=== PATIENT | male | born 2000 | race Caucasian/White ===

== ENCOUNTER 2018-11-09 11:48 | Inpatient (IN) ==
[2018-11-09 12:46] LABS: Appearance Urine Clear (Clear); Bilirubin Urine Negative (Negative); Color Urine Yellow; Glucose Urine UA Negative (Negative); Ketones Urine Negative (Negative); Leukocyte Esterase Urine Negative (Negative); Nitrite Urine Negative (Negative); Protein Urine Negative (Negative); Specific Gravity Urine 1.024 (1.000-1.030); Urobilinogen Urine Negative (Negative)
[2018-11-09 12:47] LABS: Basophils # (auto) 0.03 K/uL (0-0.2); Basophils % (auto) 0.3 %; Eosinophils # (auto) 0.07 K/uL (0-0.5); Eosinophils % (auto) 0.7 %; Hematocrit (blood only) 50.2 % (42-52); Hemoglobin 17.9 g/dL (14.0-18.0); Immature Granulocytes # (auto) 0.01 K/uL (0.00-0.02); Immature Granulocytes % (auto) 0.1 %; Lymphocytes # (auto) 2.79 K/uL (1.2-3.4); Lymphocytes % (auto) 28.4 %; Mean Corpuscular Hgb Conc 35.7 g/dL (32-36); Mean Corpuscular Volume 83.7 fL (80-100); Mean Platelet Volume 9.8 fL (7.4-10.4); Monocytes % (auto) 7.1 %; Neutrophils # (auto) 6.24 K/uL (1.4-6.5); Neutrophils % (auto) 63.4 %; Platelet Count 224 K/uL (130-400); RDW Coefficient of Variation 12.7 % (11.5-14.5); White Blood Count 9.84 K/uL (4.8-10.8)
[2018-11-09 13:06] LABS: Albumin Level 4.5 gm/dl (3.4-5.0); BUN Creatinine Ratio 13.5 (10-20); Calcium 9.6 mg/dl (8.5-10.1); Creatinine Clr Calc Pharmacy 191.5 ml/min; Est GFR (Non-African American) 128.6; Potassium 4.1 mmol/L (3.5-5.1)
[2018-11-09 13:08] LABS: Amphetamines+Metham, Urine Neg (Neg); Barbiturates, Urine Neg (Neg); Benzodiazepine, Urine Neg (Neg); Cocaine, Urine Neg (Neg); MDMA (Ecstacy), Urine Neg (Neg); Methadone, Urine Neg (Neg); Opiate, Urine Neg (Neg); Phencyclidine, Urine Neg (Neg)
[2018-11-09 13:12] LABS: Acetaminophen < 2 ug/ml (10-30); Salicylate < 1.7 mg/dl (2.8-20)
[2018-11-09 13:16] LABS: Albumin Globulin Ratio 1.1 (0.9-2); Bilirubin,Total 0.7 mg/dl (0.2-1); Globulin 4.1 gm/dl (2.5-4.0); Total Protein 8.6 gm/dl (6.4-8.2)
--- NOTE | 2018-11-09 14:16 | Emergency Department Note ---
Entered by Yaz Malloy acting as a scribe for History of Present Illness General Chief complaint: Mental Health Evaluation Stated complaint: KEEPS SAYING HE WANTS TO KILL HIMSELF Time Seen by Provider: 11/09/18 12:28 Source: patient and other (psych caseworker intake) History of Present Illness Onset (ago): month(s) 6 Location: head Pain Consistency: + other (worsening) Quality: + other (mental health evaluation) Associated symptoms: + other (loss of pleasure in activities, decrease in energy , difficulty sleeping, difficulty concentrating, suicidal ideations); no loss of appetite The patient is a 18 year old male who presents to the Emergency Room for a mental health evaluation. The patient states that he has a history of depression starting 6 months ago. He states that recently it has gotten worse. He reports that he wants to hurt himself, but has no plan. He states that he is just upset about life. He reports that he has a decrease in pleasure in activities that used to enjoy and a decrease in his energy. He reports that he has also had difficulty sleeping and concentrating. The patient denies access to weapons, taking any pills, and loss of appetite. The psych caseworker intake notes that the patient was making comments about how he wants to just go home and . She states that he also was saying to his mother Why are you stopping me? Youll be fine with 2 kids. She notes that he was bought in by his mother because he was sending texts to her this morning about wanting to . She notes that his girlfriend broke up with him on New as well. Home Medications Home Medications Medication Instructions Recorded Confirmed Type lorazepam [Ativan] 1 mg PO Q8 PRN 11/09/18 11/09/18 History venlafaxine [Effexor XR] 75 mg PO DAILY 11/09/18 11/09/18 History Allergies Allergy/AdvReac Type Severity Reaction Status Date / Time No Known Allergies Allergy Unverified 11/09/18 14:52 Past Med/Surg History Medical History Depression Family History Other No significant family history Social History marital status: Single Current Living Situation: Family current occupational status: employed Feels Safe at Home: Yes Smoking Status: Never smoker Beliefs That Will Affect Care: None Preferred Language: Egyptian Communication Ability: Effective Second Crusher Required: No Review of Systems See HPI for pertinent positives & negatives. and A total of 10 systems reviewed and were otherwise negative Physical Exam Vital Signs Vital Signs - 24 hr 11/09/18 11:55 11/09/18 13:21 11/09/18 15:50 Temperature 37.1 C Temperature Source Oral Sepsis Recent Fever Within 48 Hours No Sepsis Action Taken by Nursing No Action Required Pulse Rate 94 H 93 H Pulse Rate [Finger] 80 Respiratory Rate 18 20 18 Respiratory Effort / Characteristics Non-Labored Respiratory Depth Normal Respiratory Pattern Blood Pressure 140/96 145/85 H Blood Pressure [Left Arm] 110/86 Blood Pressure Mean 110 Blood Pressure Mean [Left Arm] 94 Blood Pressure Position Sitting Blood Pressure Position [Left Arm] Pulse Oximetry 96 98 100 Oxygen Delivery Method Room Air Room Air Room Air 11/09/18 16:28 Temperature 37.0 C Temperature Source Oral Sepsis Recent Fever Within 48 Hours Sepsis Action Taken by Nursing Pulse Rate Pulse Rate [Finger] 108 H Respiratory Rate 18 Respiratory Effort / Characteristics Non-Labored Respiratory Depth Normal Respiratory Pattern Regular Blood Pressure Blood Pressure [Left Arm] 139/110 H Blood Pressure Mean Blood Pressure Mean [Left Arm] 119 Blood Pressure Position Blood Pressure Position [Left Arm] Standing Pulse Oximetry Oxygen Delivery Method Physical Exam GENERAL: He is oriented to person, place, and time. He appears well-developed and well-nourished. He does not appear distressed. HENT: Exam performed. - Head: Normocephalic and atraumatic. - Right Ear: External ear normal. No mastoid tenderness. - Left Ear: External ear normal. No mastoid tenderness. - Mouth/Throat: The oropharynx is clear and moist. No trismus in the jaw. No dental abscesses or uvula swelling. No oropharyngeal exudate or tonsillar abscesses. EYES: Conjunctivae and EOM are normal. Pupils are equal, round, and reactive to light. Right eye exhibits no discharge. Left eye exhibits no discharge. No scleral icterus. NECK: Normal range of motion. Neck supple. No JVD present. No spinous process tenderness present. No carotid bruit present. No rigidity. No tracheal deviation and normal range of motion present. No Brudzinski's sign and no Kernig 's sign noted. CV: Normal rate, regular rhythm, normal heart sounds and intact distal pulses. There is no peripheral edema. Palpable radial pulses bue. PULM/CHEST: Effort normal and breath sounds normal. No respiratory distress. No stridor. He has no wheezes. He has no rales. - Chest Wall: He exhibits no tenderness. ABD: The abdomen is soft. Bowel sounds are normal. He has no distension. No mass is present. There is no tenderness. There is no rebound, no guarding, no Gonzalez's sign and no tenderness at McBurney's point. Rovsig negative. MUSC/SKEL: Normal range of motion. There is no peripheral edema, tenderness or deformity. LYMPH: No cervical adenopathy. NEURO: He is alert and oriented to person, place, and time. He has normal strength. No cranial nerve deficit or sensory deficit. Coordination and gait normal. GCS eye subscore is 4. GCS verbal subscore is 5. GCS motor subscore is 6. Cerebellar tests wnl. SKIN: Skin is warm and dry. He is not diaphoretic. PSYCH: He appears depressed. Positive for SI. Course 1334: Past medical records reviewed. The patient was evaluated in room A5, and a complete history and physical examination were performed. 1336: The psych caseworker intake is making a referral to [address] [place] [address] at this time for the patient. 1541: The patient was cleared medically. He was accepted to [address] [place] [address] and will be transferred to their psychiatric service. Medical Decision Making Medical Records Attestation: I reviewed the patient's medical records. Home Medications Current Medication List: was personally reviewed by me Laboratory Data Attestation: I reviewed the patient's lab results. Result diagrams: 11/09/18 12:31 11/09/18 12:31 Lab Results 11/09/18 11/09/18 11/09/18 Range/Units 12:22 12:22 12:31 WBC 9.84 (4.8-10.8) K/uL RBC 6.00 (4.7-6.1) M/uL Hgb 17.9 (14.0-18.0) g/dL Hct 50.2 (42-52) % MCV 83.7 (80-100) fL MCH 29.8 (25-34) pg MCHC 35.7 (32-36) g/dL RDW Std Deviation 38.0 (36.4-46.3) fL RDW Coeff of Ronaldo 12.7 (11.5-14.5) % Plt Count 224 (130-400) K/uL MPV 9.8 (7.4-10.4) fL Immature Gran % (Auto) 0.1 % Neut % (Auto) 63.4 % Lymph % (Auto) 28.4 % [place] % (Auto) 7.1 % Eos % (Auto) 0.7 % Baso % (Auto) 0.3 % Immature Gran # (Auto) 0.01 (0.00-0.02) K/uL Neut # (Auto) 6.24 (1.4-6.5) K/uL Lymph # (Auto) 2.79 (1.2-3.4) K/uL [place] # (Auto) 0.70 H (0.11-0.59) K/uL Eos # (Auto) 0.07 (0-0.5) K/uL Baso # (Auto) 0.03 (0-0.2) K/uL Sodium (136-145) mmol/L Potassium (3.5-5.1) mmol/L Chloride (98-107) mmol/L Carbon Dioxide (21-32) mmol/L Anion Gap (3-11) BUN (7-18) mg/dl Creatinine (0.6-1.4) mg/dl Est Cr Clr Drug Dosing ml/min Est GFR ( Amer) Est GFR (Non-Af Amer) BUN/Creatinine Ratio (10-20) Glucose (70-99) mg/dl Calcium (8.5-10.1) mg/dl Total Bilirubin (0.2-1) mg/dl AST (15-37) U/L ALT (12-78) U/L Alkaline Phosphatase (45-117) U/L Total Protein (6.4-8.2) gm/dl Albumin (3.4-5.0) gm/dl Globulin (2.5-4.0) gm/dl Albumin/Globulin Ratio (0.9-2) TSH (0.300-4.500) uIu/ml Urine Color Yellow Urine Appearance Clear (Clear) Urine pH 5.0 (4.5-7.5) Ur Specific [place] 1.024 (1.000-1.030) Urine Protein Negative (Negative) Urine Glucose (UA) Negative (Negative) Urine Ketones Negative (Negative) Urine Blood Negative (Negative) Urine Nitrite Negative (Negative) Urine Bilirubin Negative (Negative) Urine Urobilinogen Negative (Negative) Ur Leukocyte Esterase Negative (Negative) Salicylates (2.8-20) mg/dl Urine Opiates Screen Neg (Neg) Ur Methadone, Qual Neg (Neg) Acetaminophen (10-30) ug/ml Urine Barbiturates Neg (Neg) Ur Phencyclidine (PCP) Neg (Neg) U Amphetamin/Meth Scrn Neg (Neg) MDMA (Ecstasy) Screen Neg (Neg) U Benzodiazepines Scrn Neg (Neg) Ur Cocaine Metabolite Neg (Neg) U Marijuana (THC) Screen Neg (Neg) Ethyl Alcohol mg/dL (0-3) mg/dl 11/09/18 11/09/18 11/09/18 Range/Units 12:31 12:31 12:31 WBC (4.8-10.8) K/uL RBC (4.7-6.1) M/uL Hgb (14.0-18.0) g/dL Hct (42-52) % MCV (80-100) fL MCH (25-34) pg MCHC (32-36) g/dL RDW Std Deviation (36.4-46.3) fL RDW Coeff of Ronaldo (11.5-14.5) % Plt Count (130-400) K/uL MPV (7.4-10.4) fL Immature Gran % (Auto) % Neut % (Auto) % Lymph % (Auto) % [place] % (Auto) % Eos % (Auto) % Baso % (Auto) % Immature Gran # (Auto) (0.00-0.02) K/uL Neut # (Auto) (1.4-6.5) K/uL Lymph # (Auto) (1.2-3.4) K/uL [place] # (Auto) (0.11-0.59) K/uL Eos # (Auto) (0-0.5) K/uL Baso # (Auto) (0-0.2) K/uL Sodium 139 (136-145) mmol/L Potassium 4.1 (3.5-5.1) mmol/L Chloride 105 (98-107) mmol/L Carbon Dioxide 27 (21-32) mmol/L Anion Gap 7.0 (3-11) BUN 11 (7-18) mg/dl Creatinine 0.80 (0.6-1.4) mg/dl Est Cr Clr Drug Dosing 191.5 ml/min Est GFR ( Amer) 149.0 Est GFR (Non-Af Amer) 128.6 BUN/Creatinine Ratio 13.5 (10-20) Glucose 91 (70-99) mg/dl Calcium 9.6 (8.5-10.1) mg/dl Total Bilirubin 0.7 (0.2-1) mg/dl AST 38 H (15-37) U/L ALT 79 H (12-78) U/L Alkaline Phosphatase 85 (45-117) U/L Total Protein 8.6 H (6.4-8.2) gm/dl Albumin 4.5 (3.4-5.0) gm/dl Globulin 4.1 H (2.5-4.0) gm/dl Albumin/Globulin Ratio 1.1 (0.9-2) TSH 1.440 (0.300-4.500) uIu/ml Urine Color Urine Appearance (Clear) Urine pH (4.5-7.5) Ur Specific [place] (1.000-1.030) Urine Protein (Negative) Urine Glucose (UA) (Negative) Urine Ketones (Negative) Urine Blood (Negative) Urine Nitrite (Negative) Urine Bilirubin (Negative) Urine Urobilinogen (Negative) Ur Leukocyte Esterase (Negative) Salicylates < 1.7 L (2.8-20) mg/dl Urine Opiates Screen (Neg) Ur Methadone, Qual (Neg) Acetaminophen < 2 L (10-30) ug/ml Urine Barbiturates (Neg) Ur Phencyclidine (PCP) (Neg) U Amphetamin/Meth Scrn (Neg) MDMA (Ecstasy) Screen (Neg) U Benzodiazepines Scrn (Neg) Ur Cocaine Metabolite (Neg) U Marijuana (THC) Screen (Neg) Ethyl Alcohol mg/dL < 3.0 (0-3) mg/dl Blood Pressure Blood Pressure Findings: Normal blood pressure Blood Pressure Disposition: did not require urgent referral MDM Narrative The patient was cleared medically. He was accepted to [address] [place] [address] and will be transferred to their psychiatric service. Impression & Plan Suicidal ideation, Depression Discharge Plan Visit Data Chief Complaint: Mental Health Evaluation Stated Complaint: KEEPS SAYING HE WANTS TO KILL HIMSELF ED Provider: Ganesh Nguyen Discharge Problem: Suicidal ideation, Depression Patient Disposition: Admitted As Inpatient Discharge Instructions Interventions: ED Discharge Assessment Last Done: 11/09/18 15:50 The scribe's documentation has been prepared under my direction and personally reviewed by me in its entirety. I confirm that the note above accurately reflects all work, treatment, procedures, and medical decision making performed by me.
[2018-11-09] MEDS ORDERED: ALUMINUM/MAGNESIUM SUSP 30 ML UDC PO PRN (15:39)
[2018-11-09] MEDS ORDERED: SODIUM CHLORIDE 0.65% NA SOLN 45 ML (OCEAN) PRN (15:39)
[2018-11-09] MEDS ORDERED: MAGNESIUM HYDROXIDE SUSP 30 ML UDC PO PRN (15:39)
[2018-11-09] MEDS ORDERED: BISMUTH SUBSALICYLATE PER ML OMNICELL CHARGE PO PRN (15:39)
[2018-11-09] MEDS ORDERED: ACETAMINOPHEN 325 MG TAB PO PRN (15:39)
[2018-11-09 15:53] VITALS: O2SAT 100
[2018-11-10] MEDS: VENLAFAXINE HCL XR 75 MG CAPXR PO SCH (09:04)
--- NOTE | 2018-11-10 10:52 | History & Physical ---
Date of Service November 10, 2018 Impression / Recommendations Impression This 18-year-old man reports a history of symptoms of depression that began approximately 5 or 6 months ago, within the context of concerns regarding his somatic health and a fear that he had developed a "heart condition." The context for this was the fact that he was experiencing symptoms of gastroesophageal reflux disease, and even after being told that his chest pain symptoms were, in fact, due to esophageal reflux disease and not to cardiac disease, he continued to experience panic attacks, typically when experiencing GERD symptoms. After being placed on venlafaxine by his primary care doctor proximally 3 months ago the panic episodes stopped and he reports that he had begun to feel somewhat less depressed. More specifically, the patient reports that he noticed that he began taking Effexor he was less likely to enter "downward spiral's" associated with ruminations concerning his self worth and what he considers to be personal failings. The current admission seems to have been precipitated by a mutual decision by the patient and his girlfriend to end their relationship. This occurred on 2017, and since that time he has become progressively more upset and depressedprimarily because he believes that he may have wasted for years pursuing a relationship that he should have recognized earlier was not likely to have led to long-term happiness. (The patient cites a number of differences, including a lack of shared temperament and interests.) He has received several texts from his former girlfriend in the intercurrent period, and evidently on 11/09/2017 1 of these texts was particularly upsetting to him. Within that context, the patient began to experience overwhelming feelings of hopelessness and worthlessness, contacted his mother, repeatedly expressed a desire to , and arrangements were made by his family to have him evaluated in the emergency room. Today, the patient reports that he is feeling much better and has come to terms with the end of the relationship. He points out that on several other occasions the relationship had ended and he was able to "move on." He is clearly future oriented at this point and he is denying suicidal thoughts. However, he continues to endorse feelings of depression and my only concern would be that he has taken a rapid "flight into health." The patient submitted a 72-hour notice that is up on Tuesday. My impression is that he will not meet criteria for involuntary hospitalization after another 2 or 3 days of observation, and I would anticipate that he will be discharged to home, with arrangements for continued treatment on an outpatient basis, on Tuesday. We spent quite a bit of time discussing the fact that I would recommend increasing his dose of venlafaxine, within the context of his report of a partial response and the fact that he is on a fairly low dose. However, the patient tells me that his preference would be to first try individual psychotherapy and then consider medication increases. Inventory Assets Strengths: Intelligent. Supportive family. 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 Many interests , including fishing. Socially active. Needs: Depression. Feelings of inadequacy and self approach treatment. 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 He reports a five or six month history of symptoms of depression and panic episodes. He was admitted on 11/09/18 15:39 on a 201 voluntary commitment because of suicidal ideation, but not long afterward he submitted a 72-notice. Chief Complaint "Depression" History of Present Illness The patient is a 18-year-old man who was admitted through the emergency room on 11/09/2018 after he contacted his mother several times (evidently by text message ) and spoke of wanting to . The patient tells me that he had no specific suicidal plan and no suicidal intent, but said that he became acutely upset by his circumstances and was having recurrent passive thoughts of suicide. The patient's history includes the report that for the past 5 or 6 months he has been experiencing worsening symptoms of depression, including depressed mood, low self-esteem, frequent episodes of self-reproach meant, feelings of inadequacy, anhedonia, anergia, and both initial and intermittent insomnia. Initially very reluctant to take antidepressant medications, he was eventually convinced by his primary care doctor to take venlafaxine 75 mg daily. Although he reports that he has found that venlafaxine helps prevent him from "going into a downward spiral," and that he can tell that his mood tends to get worse if he misses a dose, he also says that he does not want to consider a higher dose of this medication even if it is recommended. Other than a brief episode of individual therapy that occurred when he was 12 or 13, he has no history of previous contact with the mental health community. The patient believes his current depressive episode started when he was experiencing symptoms that later were determined to be gastroesophageal reflux disease, and he consistently interpreted the burning, sharp pain in his epigastric and sternal region as a possible heart attacka circumstance that led to periodic panic episodes and at least 1 trip to the emergency room by ambulance to rule out myocardial infarction. The patient identifies the breakup with his girlfriend of 4 years as the precipitating event that led to the hospitalization. He explains that he is a fairly social person who enjoys spending time with friends and engaged in social activities, while his girlfriend is very introverted, shy, and avoid social contacts. Within the context of the fact that the couple had been talking of getting he approached his girlfriend on s [place] and told her that if they were to or lived together he would expect that they would "not be 1 of those couples who isolates at home all the time and never does anything." The girlfriend reportedly responded by saying that she understood, but that she was unlikely to change, and by mutual decision they decided to end the relationship. (Of note is the fact that the couple has ended the relationship, at least temporarily, for several months at a time on 2 occasions in the past and have always reconciled.) Since ending the relationship with his girlfriend on s [place] the patient has become progressively more depressed and anxious. However, he tells me that he has had no further panic episodes since beginning Effexor, and the gastroesophageal reflux disease symptoms resolved after a course of treatment with omeprazole. Other situational factors that the patient believes contribute to his depression is his sense that he is in a career that is unlikely to have sufficient pecuniary rewards to allow him to live independently, and, at the age of 18, he is feeling "stuck" because he's missed opportunities, such as a change to go to college/seminary school. Past Psychiatric History Previous Psych History: The patient reports that he briefly participated in individual therapy when he was 12 or 13, but does not recall many of the details of this, other than to say that it was not because of depression. He was placed on venlafaxine 75 mg approximately 3 months ago and reports that this medication has been helpful in terms of easing his symptoms of depression, lowering his level of anxiety, preventing further panic episodes, and helping him to not spend as much time ruminating about his "past failures." He has no history of previous psychiatric hospitalization and has never taken any psychiatric medication other than venlafaxine. He also has not taken venlafaxine at a higher dose than 75 mg daily. Current Psychiatric Diagnosis: Depression Outpatient Services: Patient reports that he had a brief course of outpatient treatment with a therapist when he was 12 or 13. He does not disclose the reasons for this treatment, but says that it was not related to previous depressive episode and that, prior to the current episode, he never experienced depression. Previous Psych Admissions: No previous psychiatric hospitalizations Do You Have Access To A Gun?: No History of Previous Suicide Attempt: No Past Medication Trials: Patient currently takes venlafaxine 75 mg daily and has been taking this medication for approximately 3 months. He has no history of taking any other psychiatric medication. Additional Notes: The patient is highly reluctant to take psychiatric medications and is currently refusing a dose of venlafaxine higher than 75 mg because, as he puts it, "I hate to think about medications controlling me." Past Head Trauma/Neuro History History of Concussion/Seizure: No Allergies Allergy/AdvReac Type Severity Reaction Status Date / Time No Known Allergies Allergy Unverified 11/09/18 14:52 Home Medications Home Medications Medication Instructions Recorded Confirmed Type lorazepam [Ativan] 1 mg PO Q8 PRN 11/09/18 11/09/18 History venlafaxine [Effexor XR] 75 mg PO DAILY 11/09/18 11/09/18 History Family History Family History of: Doesn't Know Family Mental Health History Comment: Pt verbalized that he does not know of any family member with a mental health disorder stating "who knows... these things are usually kept secret" Alcohol History Hx of Alcohol Use Over the Past 12 Months: No AUDIT Total Score: 0 Smoking Use Have You Smoked or Used Tobacco Products in the Last 30 Days: No Smoking Status: Never smoker Substance History Hx of Prescription Med Misuse Over the Past 12 Months: No Hx of Over the Counter Med Misuse Over the Past 12 Months: No Hx of Inhalent Misuse Over the Past 12 Months: No Hx of Organic Substance Use Over the Past 12 Months: No Hx of Illegal Substances/Street Drug Use Over Past 12 Months: No Personal History Living Arrangements: Home Living Arrangements Comments: The patient lives with both of his parents. 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 Born In: [facility] Childhood: The patient reports a happy childhood and reports that he has no history of physical, sexual or emotional trauma. Highest Grade Completed: High School Graduate Highest Grade Completed Comment: The patient had been prepared to enter a theological seminary in [place] with the support of his nondenominational, but because his then girlfriend (referenced above) was so introverted and shy, he felt that it would not be fair to her to expect her to become a "preacher's ," and so he ended up declining the opportunity to get a more advanced education. 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) Marital Status: Single Number Of Children: 0 Beliefs That Will Affect Care: Oriental Orthodox (The patient tells me that he is an active member in the "[employer]," but was considering going to a seminary that was [place] [facility]) and Cultural (The patient's previous career goal was to become a web mobile designer.) Current Legal Problems: No Hx Legal Problems: No Hx Traumatic Life Events: No Patient History Medical History Depression Family History Other No significant family history Social History marital status: Single Current Living Situation: Family current occupational status: employed Feels Safe at Home: Yes Smoking Status: Never smoker Beliefs That Will Affect Care: None Preferred Language: Sammarinese Communication Ability: Effective Senior Erp Consultant Required: No Review of Systems All systems reviewed & are unremarkable except as noted in HPI & below The admission and physical examination completed by Ganesh Nguyen has been reviewed and is accepted as medical clearance for the Behavioral Health Unit. Physical Exam Psychiatric Orientation: alert and oriented x 3 Apperance: appropriately dressed and appropriately groomed Eye Contact: good eye contact Motor Behavior: + tremor The patient has a fine 6-12 beat per second tremor in his hands, and periodically nervously shake one or both of his lower extremities. Speech: normal rate/rhythm/volume of speech Affect: + anxious affect The patient's affect is more anxious than depressed. He smiles and laughs appropriately several times during the evaluation. He shows me several areas on his upper extremities (wrists and forearms, bilaterally) where there is scabbing. He tells me that when anxious he tends to scratch himself in his sleep and awakens with raw spots in various locations, sometimes on his legs and ankles, and, more recently, on his upper extremities as above. Mood: + depressed mood and + anxious mood Thought Process: goal directed thought process, linear/logical thought process and clear/coherent thought process Thought Content: + obsessions (The patient acknowledges that he has a tendency to somatize, with a fear of a potentially fatal disease, such as a myocardial infarction. However, he does not present with other symptoms suggestive of OCD) , reality based without delusions and + self deprecation Suicidal Thoughts: denies suicidal thoughts The patient presented in the emergency room and made repeated statements regarding "wanting to " and acknowledges that he had suicidal thoughts without any specific plan or actual intent. At the time of my evaluation he reporting that he was no longer having thoughts of suicideAt the time of my evaluation. However, the context is that he reports symptoms of major depressive disorder that have not resolved after 5 or 6 months, followed by an acute exacerbation following a romantic breakup. The patient also tells me that he remembers little about the events that immediately preceded his admission, but says that he was distraught and overcome by emotion Homicidal Thoughts: denies homicidal thoughts Hallucinations: no auditory hallucinations and no visual hallucinations Cognition: recent memory grossly intact and language grossly intact Estimated Intelligence: + above average estimated intelligence Insight: + fair insight Judgement: + fair judgement Vital Signs (Past 24 Hours) Last Vital Signs Temp 36.6 C 11/10/18 06:00 Pulse 73 11/10/18 06:00 Resp 14 11/10/18 06:00 BP 115/70 11/10/18 06:00 Pulse Ox 100 11/09/18 15:50 Results & Data Laboratory Results Laboratory Results - last 24 hr 11/09/18 11/09/18 11/09/18 12:22 12:22 12:31 WBC 9.84 RBC 6.00 Hgb 17.9 Hct 50.2 MCV 83.7 MCH 29.8 MCHC 35.7 RDW Std Deviation 38.0 RDW Coeff of Ronaldo 12.7 Plt Count 224 MPV 9.8 Immature Gran % (Auto) 0.1 Neut % (Auto) 63.4 Lymph % (Auto) 28.4 [place] % (Auto) 7.1 Eos % (Auto) 0.7 Baso % (Auto) 0.3 Immature Gran # (Auto) 0.01 Neut # (Auto) 6.24 Lymph # (Auto) 2.79 [place] # (Auto) 0.70 H Eos # (Auto) 0.07 Baso # (Auto) 0.03 Sodium Potassium Chloride Carbon Dioxide Anion Gap BUN Creatinine Est Cr Clr Drug Dosing Est GFR ( Amer) Est GFR (Non-Af Amer) BUN/Creatinine Ratio Glucose Calcium Total Bilirubin AST ALT Alkaline Phosphatase Total Protein Albumin Globulin Albumin/Globulin Ratio TSH Urine Color Yellow Urine Appearance Clear Urine pH 5.0 Ur Specific Sharon 1.024 Urine Protein Negative Urine Glucose (UA) Negative Urine Ketones Negative Urine Blood Negative Urine Nitrite Negative Urine Bilirubin Negative Urine Urobilinogen Negative Ur Leukocyte Esterase Negative Salicylates Urine Opiates Screen Neg Ur Methadone, Qual Neg Acetaminophen Urine Barbiturates Neg Ur Phencyclidine (PCP) Neg U Amphetamin/Meth Scrn Neg MDMA (Ecstasy) Screen Neg U Benzodiazepines Scrn Neg Ur Cocaine Metabolite Neg U Marijuana (THC) Screen Neg Ethyl Alcohol mg/dL 11/09/18 11/09/18 11/09/18 12:31 12:31 12:31 WBC RBC Hgb Hct MCV MCH MCHC RDW Std Deviation RDW Coeff of Ronaldo Plt Count MPV Immature Gran % (Auto) Neut % (Auto) Lymph % (Auto) [place] % (Auto) Eos % (Auto) Baso % (Auto) Immature Gran # (Auto) Neut # (Auto) Lymph # (Auto) [place] # (Auto) Eos # (Auto) Baso # (Auto) Sodium 139 Potassium 4.1 Chloride 105 Carbon Dioxide 27 Anion Gap 7.0 BUN 11 Creatinine 0.80 Est Cr Clr Drug Dosing 191.5 Est GFR ( Amer) 149.0 Est GFR (Non-Af Amer) 128.6 BUN/Creatinine Ratio 13.5 Glucose 91 Calcium 9.6 Total Bilirubin 0.7 AST 38 H ALT 79 H Alkaline Phosphatase 85 Total Protein 8.6 H Albumin 4.5 Globulin 4.1 H Albumin/Globulin Ratio 1.1 TSH 1.440 Urine Color Urine Appearance Urine pH Ur Specific Sharon Urine Protein Urine Glucose (UA) Urine Ketones Urine Blood Urine Nitrite Urine Bilirubin Urine Urobilinogen Ur Leukocyte Esterase Salicylates < 1.7 L Urine Opiates Screen Ur Methadone, Qual Acetaminophen < 2 L Urine Barbiturates Ur Phencyclidine (PCP) U Amphetamin/Meth Scrn MDMA (Ecstasy) Screen U Benzodiazepines Scrn Ur Cocaine Metabolite U Marijuana (THC) Screen Ethyl Alcohol mg/dL < 3.0 Diagnostic Findings Major depressive disorder, single episode, moderate. Panic disorder. Suicidal ideations. Current Inpatient Medications Current Inpatient Medications: Current Inpatient Medications Acetaminophen (Tylenol) 650 mg PO Q4H PRN PRN Reason: Headache or Minor Fever Stop: 12/09/18 15:38 Al Hydrox/Mg Hydrox/Simethicone (Maalox) 30 ml PO Q4H PRN PRN Reason: GI Upset Stop: 12/09/18 15:38 Bismuth Subsalicylate (Kaopectate) 15 ml PO PRN PRN PRN Reason: Loose Stool Stop: 12/09/18 15:38 Hydroxyzine HCl (Vistaril) 25 mg PO Q4H PRN PRN Reason: Anxiety Stop: 12/09/18 15:38 Magnesium Hydroxide (Milk Of Magnesia) 30 ml PO DAILY PRN PRN Reason: Heartburn Stop: 12/09/18 15:38 Sodium Chloride (Zavala Nasal) 1 - 2 sprays NA PRN PRN PRN Reason: Nasal Dryness/Congestion Stop: 12/09/18 15:38 Venlafaxine HCl (Effexor Extended Release) 75 mg PO DAILY ANA MARIA Stop: 12/10/18 08:59 Last Admin: 11/10/18 09:04 Dose: 75 mg CPT Code CPT Code Initial Hospital Care: 64007
[2018-11-11 06:50] VITALS: TEMP 98.1
--- NOTE | 2018-11-11 07:20 | Psychiatric Progress Note ---
Date of Service November 11, 2018 Impression / Recommendations (1) Suicidal ideation: 11/11 - Continue admission on a 201 voluntary commitment. Patient has submitted a 72 hour notice which expires on Tuesday. He remains at risk as risk factors have not been mitigated, he is declining recommendations to increase his antidepressant dose, and safety plan not in place, so continued inpatient treatment is medically necessary. - Encourage group and therapy attendance and participation, work on healthy coping skills and discharge safety plan. Present on Admission?: Yes (2) Depression: 11/10 - symptoms of depression that began approximately 5 or 6 months ago, within the context of concerns regarding his somatic health and a fear that he had developed a "heart condition." The context for this was the fact that he was experiencing symptoms of gastroesophageal reflux disease, and even after being told that his chest pain symptoms were, in fact, due to esophageal reflux disease and not to cardiac disease, he continued to experience panic attacks, typically when experiencing GERD symptoms. After being placed on venlafaxine by his primary care doctor proximally 3 months ago the panic episodes stopped and he reports that he had begun to feel somewhat less depressed. More specifically, the patient reports that he noticed that he began taking Effexor he was less likely to enter "downward spiral's" associated with ruminations concerning his self worth and what he considers to be personal failings. The current admission seems to have been precipitated by a mutual decision by the patient and his girlfriend to end their relationship. This occurred on 2017, and since that time he has become progressively more upset and depressedprimarily because he believes that he may have wasted for years pursuing a relationship that he should have recognized earlier was not likely to have led to long-term happiness. (The patient cites a number of differences , including a lack of shared temperament and interests.) He has received several texts from his former girlfriend in the intercurrent period, and evidently on 11/09/2017 1 of these texts was particularly upsetting to him. Within that context, the patient began to experience overwhelming feelings of hopelessness and worthlessness, contacted his mother, repeatedly expressed a desire to , and arrangements were made by his family to have him evaluated in the emergency room. Today, the patient reports that he is feeling much better and has come to terms with the end of the relationship. He points out that on several other occasions the relationship had ended and he was able to "move on." He is clearly future oriented at this point and he is denying suicidal thoughts. However, he continues to endorse feelings of depression and my only concern would be that he has taken a rapid "flight into health." The patient submitted a 72-hour notice that is up on Tuesday. My impression is that he will not meet criteria for involuntary hospitalization after another 2 or 3 days of observation, and I would anticipate that he will be discharged to home, with arrangements for continued treatment on an outpatient basis, on Tuesday. We spent quite a bit of time discussing the fact that I would recommend increasing his dose of venlafaxine, within the context of his report of a partial response and the fact that he is on a fairly low dose. However, the patient tells me that his preference would be to first try individual psychotherapy and then consider medication increases. /5 - Present on Admission?: Yes Inventory Assets Strengths: Intelligent. Supportive family. 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 Many interests , including fishing. Socially active. Needs: Depression. Feelings of inadequacy and self approach treatment. 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 Review of Systems Sleep Information Total Hours of Sleep: 5.5 Meal Information Percent Meal Consumed - Breakfast: 90 Percent Meal Consumed - Lunch: 100 Percent Meal Consumed - Dinner: 100 Subjective Subjective Patient was seen & assessed and interval progress reviewed with Nursing. Physical Exam Vital Signs (Past 24 Hours) Last Vital Signs Temp 36.7 C 11/11/18 06:49 Pulse 80 11/11/18 06:50 Resp 16 11/11/18 06:49 BP 125/86 11/11/18 06:50 Pulse Ox 100 11/09/18 15:50 Results & Data Current Inpatient Medications Current Inpatient Medications: Current Inpatient Medications Acetaminophen (Tylenol) 650 mg PO Q4H PRN PRN Reason: Headache or Minor Fever Stop: 12/09/18 15:38 Al Hydrox/Mg Hydrox/Simethicone (Maalox) 30 ml PO Q4H PRN PRN Reason: GI Upset Stop: 12/09/18 15:38 Bismuth Subsalicylate (Kaopectate) 15 ml PO PRN PRN PRN Reason: Loose Stool Stop: 12/09/18 15:38 Hydroxyzine HCl (Vistaril) 25 mg PO Q4H PRN PRN Reason: Anxiety Stop: 12/09/18 15:38 Magnesium Hydroxide (Milk Of Magnesia) 30 ml PO DAILY PRN PRN Reason: Heartburn Stop: 12/09/18 15:38 Sodium Chloride ([place] Nasal) 1 - 2 sprays NA PRN PRN PRN Reason: Nasal Dryness/Congestion Stop: 12/09/18 15:38 Venlafaxine HCl (Effexor Extended Release) 75 mg PO DAILY ANA MARIA Stop: 12/10/18 08:59 Last Admin: 11/10/18 09:04 Dose: 75 mg Post Discharge Appointments Primary Care Physician [facility] Date of Appointment with PCP: 11/13/18 Time of Appointment with PCP: 1:00 p.m. Provider Appointment Comment: [address] [place] [address] Psychiatrist Name of Psychiatrist: (will be using PCP as med provider) Therapist Name of Therapist: Claudio Velasquez LPC Therapist's Date of Therapist Appointment: 11/15/18 Time of Therapist Appointment: 3:00 p.m. Therapy Appointment Comment: [address] [facility] [place] [address] Project Scheduler Name of Project Scheduler: None Contact Information Discharge Discharge Address: [address] [place] [address] CPT Code CPT Code 10979 [id number] _ (1) Depression Active/Remission status: Depression Type: unspecified Major depression episode severity: Major depression recurrence: Psychotic features: Trimester: Qualified Code(s): F32.9 - Major depressive disorder, single episode, unspecified
[2018-11-11] MEDS: VENLAFAXINE HCL XR 75 MG CAPXR PO SCH (09:16)
--- NOTE | 2018-11-11 10:03 | Discharge Summary ---
Date of Service November 11, 2018 History of Present Illness The patient is a 18-year-old man who was admitted through the emergency room on 11/09/2018 after he contacted his mother several times (evidently by text message ) and spoke of wanting to . The patient tells me that he had no specific suicidal plan and no suicidal intent, but said that he became acutely upset by his circumstances and was having recurrent passive thoughts of suicide. The patient's history includes the report that for the past 5 or 6 months he has been experiencing worsening symptoms of depression, including depressed mood, low self-esteem, frequent episodes of self-reproach meant, feelings of inadequacy, anhedonia, anergia, and both initial and intermittent insomnia. Initially very reluctant to take antidepressant medications, he was eventually convinced by his primary care doctor to take venlafaxine 75 mg daily. Although he reports that he has found that venlafaxine helps prevent him from "going into a downward spiral," and that he can tell that his mood tends to get worse if he misses a dose, he also says that he does not want to consider a higher dose of this medication even if it is recommended. Other than a brief episode of individual therapy that occurred when he was 12 or 13, he has no history of previous contact with the mental health community. The patient believes his current depressive episode started when he was experiencing symptoms that later were determined to be gastroesophageal reflux disease, and he consistently interpreted the burning, sharp pain in his epigastric and sternal region as a possible heart attacka circumstance that led to periodic panic episodes and at least 1 trip to the emergency room by ambulance to rule out myocardial infarction. The patient identifies the Carolyne breakup with his girlfriend of 4 years as the precipitating event that led to the hospitalization. He explains that he is a fairly social person who enjoys spending time with friends and engaged in social activities, while his girlfriend is very introverted, shy, and avoid social contacts. Within the context of the fact that the couple had been talking of getting he approached his girlfriend on e and told her that if they were to or lived together he would expect that they would "not be 1 of those couples who isolates at home all the time and never does anything." The girlfriend reportedly responded by saying that she understood, but that she was unlikely to change, and by mutual decision they decided to end the relationship. (Of note is the fact that the couple has ended the relationship, at least temporarily, for several months at a time on 2 occasions in the past and have always reconciled.) Since ending the relationship with his girlfriend on the patient has become progressively more depressed and anxious. However, he tells me that he has had no further panic episodes since beginning Effexor, and the gastroesophageal reflux disease symptoms resolved after a course of treatment with omeprazole. Other situational factors that the patient believes contribute to his depression is his sense that he is in a career that is unlikely to have sufficient pecuniary rewards to allow him to live independently, and, at the age of 18, he is feeling "stuck" because he's missed opportunities, such as a change to go to college/seminary school. Physical Exam Vital Signs (Past 24 Hours) Last Vital Signs Temp 36.7 C 11/11/18 06:49 Pulse 80 11/11/18 06:50 Resp 16 11/11/18 06:49 BP 125/86 11/11/18 06:50 Pulse Ox 100 11/09/18 15:50 Principal Diagnosis Depression Psychiatric Data Patient had a brief, 2-day hospitalization, as he submitted a 72-hour notice requesting to withdraw from treatment immediately after admission. Although he admitted to making suicidal statements prior to admission, he consistently denied suicidal thoughts while on the unit. He was able to process his stressors, and reported good support from his family. He declined recommendations to increase his antidepressant dose, but was continued on 75 mg venlafaxine XR daily. He attended and participated in groups and therapy, and talked about his relationship with his parents, stating that although they are supportive, he has not been sharing his emotions with them. He talked with him during his hospitalization and was able to open up about his mood problems, and felt they were supportive. Day of Discharge Assessment Patient reports his mood has improved from admission, and continues to deny suicidal thoughts. He says it has been a relief to be open with his parents about his emotions, and that they are very supportive and he now feels comfortable talking about his feelings with him. He denies problems with sleep and appetite, and is tolerating his antidepressant well. He is able to review his safety plan, and is willing to follow up with a therapist and Gill Stokes and his PCP for medications. He has a family meeting with his parents this afternoon, and is requesting discharge at the end of the meeting. Transition of Care Transition Of Care Record: was reviewed with the patient Advance Directives Advance Directives Information Provided: Yes Advance Directives: No Mental Health Advance Directive: No Advance Directives on File: No (N/A) Living Will: No Power of Cop Examiner: No Advance Directives Reason:: Declines as Mental Health Visit. Risk Factors Assessment Risk factors were mitigated by admission to the inpatient unit, education about his diagnosis and review of recommendations to increase his antidepressant which he declined, referring him for increased outpatient services (individual therapy) and to his PCP for ongoing medication management, involving him in groups and therapy, working on healthy coping skills and a discharge safety plan , and a family meeting with his parents who he lives with. He is reporting improved mood, denying suicidal thoughts, has not engaged in self-injurious behavior here, is performing ADLs independently, and is able to review his discharge safety plan. He is requesting discharge, and is he is no longer at acute risk of harm to himself, can be managed as an outpatient at this time. 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 ([employer]) Stable Relationships: Yes Supportive Family: Yes Good Rapport with Provider: Yes Absence of Any Risk Factors Above: No Tobacco Cessation at Discharge Tobacco Cessation Medication Prescribed at Discharge: Not Applicable/Non-Smoker Total Time Total Time Spent: Greater Than 30 Minutes Total Time Includes: Examination of the patient, Discharge Planning and Medication Reconciliation Discharge Data Lab Results 11/09/18 11/09/18 11/09/18 12:22 12:22 12:31 WBC 9.84 RBC 6.00 Hgb 17.9 Hct 50.2 MCV 83.7 MCH 29.8 MCHC 35.7 RDW Std Deviation 38.0 RDW Coeff of Ronaldo 12.7 Plt Count 224 MPV 9.8 Immature Gran % (Auto) 0.1 Neut % (Auto) 63.4 Lymph % (Auto) 28.4 Worth % (Auto) 7.1 Eos % (Auto) 0.7 Baso % (Auto) 0.3 Immature Gran # (Auto) 0.01 Neut # (Auto) 6.24 Lymph # (Auto) 2.79 Worth # (Auto) 0.70 H Eos # (Auto) 0.07 Baso # (Auto) 0.03 Sodium Potassium Chloride Carbon Dioxide Anion Gap BUN Creatinine Est Cr Clr Drug Dosing Est GFR ( Amer) Est GFR (Non-Af Amer) BUN/Creatinine Ratio Glucose Calcium Total Bilirubin AST ALT Alkaline Phosphatase Total Protein Albumin Globulin Albumin/Globulin Ratio TSH Urine Color Yellow Urine Appearance Clear Urine pH 5.0 Ur Specific [place] 1.024 Urine Protein Negative Urine Glucose (UA) Negative Urine Ketones Negative Urine Blood Negative Urine Nitrite Negative Urine Bilirubin Negative Urine Urobilinogen Negative Ur Leukocyte Esterase Negative Salicylates Urine Opiates Screen Neg Ur Methadone, Qual Neg Acetaminophen Urine Barbiturates Neg Ur Phencyclidine (PCP) Neg U Amphetamin/Meth Scrn Neg MDMA (Ecstasy) Screen Neg U Benzodiazepines Scrn Neg Ur Cocaine Metabolite Neg U Marijuana (THC) Screen Neg Ethyl Alcohol mg/dL 11/09/18 11/09/18 11/09/18 12:31 12:31 12:31 WBC RBC Hgb Hct MCV MCH MCHC RDW Std Deviation RDW Coeff of Ronaldo Plt Count MPV Immature Gran % (Auto) Neut % (Auto) Lymph % (Auto) Worth % (Auto) Eos % (Auto) Baso % (Auto) Immature Gran # (Auto) Neut # (Auto) Lymph # (Auto) Worth # (Auto) Eos # (Auto) Baso # (Auto) Sodium 139 Potassium 4.1 Chloride 105 Carbon Dioxide 27 Anion Gap 7.0 BUN 11 Creatinine 0.80 Est Cr Clr Drug Dosing 191.5 Est GFR ( Amer) 149.0 Est GFR (Non-Af Amer) 128.6 BUN/Creatinine Ratio 13.5 Glucose 91 Calcium 9.6 Total Bilirubin 0.7 AST 38 H ALT 79 H Alkaline Phosphatase 85 Total Protein 8.6 H Albumin 4.5 Globulin 4.1 H Albumin/Globulin Ratio 1.1 TSH 1.440 Urine Color Urine Appearance Urine pH Ur Specific [place] Urine Protein Urine Glucose (UA) Urine Ketones Urine Blood Urine Nitrite Urine Bilirubin Urine Urobilinogen Ur Leukocyte Esterase Salicylates < 1.7 L Urine Opiates Screen Ur Methadone, Qual Acetaminophen < 2 L Urine Barbiturates Ur Phencyclidine (PCP) U Amphetamin/Meth Scrn MDMA (Ecstasy) Screen U Benzodiazepines Scrn Ur Cocaine Metabolite U Marijuana (THC) Screen Ethyl Alcohol mg/dL < 3.0 Hospital Course (1) Suicidal ideation: 11/11 - Continue admission on a 201 voluntary commitment. Patient has submitted a 72 hour notice which expires on Tuesday. He remains at risk as risk factors have not been mitigated, he is declining recommendations to increase his antidepressant dose, and safety plan not in place, so continued inpatient treatment is medically necessary. - Encourage group and therapy attendance and participation, work on healthy coping skills and discharge safety plan. (2) Depression: 11/10 - symptoms of depression that began approximately 5 or 6 months ago, within the context of concerns regarding his somatic health and a fear that he had developed a "heart condition." The context for this was the fact that he was experiencing symptoms of gastroesophageal reflux disease, and even after being told that his chest pain symptoms were, in fact, due to esophageal reflux disease and not to cardiac disease, he continued to experience panic attacks, typically when experiencing GERD symptoms. After being placed on venlafaxine by his primary care doctor proximally 3 months ago the panic episodes stopped and he reports that he had begun to feel somewhat less depressed. More specifically, the patient reports that he noticed that he began taking Effexor he was less likely to enter "downward spiral's" associated with ruminations concerning his self worth and what he considers to be personal failings. The current admission seems to have been precipitated by a mutual decision by the patient and his girlfriend to end their relationship. This occurred on 2017, and since that time he has become progressively more upset and depressedprimarily because he believes that he may have wasted for years pursuing a relationship that he should have recognized earlier was not likely to have led to long-term happiness. (The patient cites a number of differences , including a lack of shared temperament and interests.) He has received several texts from his former girlfriend in the intercurrent period, and evidently on 11/09/2017 1 of these texts was particularly upsetting to him. Within that context, the patient began to experience overwhelming feelings of hopelessness and worthlessness, contacted his mother, repeatedly expressed a desire to , and arrangements were made by his family to have him evaluated in the emergency room. Today, the patient reports that he is feeling much better and has come to terms with the end of the relationship. He points out that on several other occasions the relationship had ended and he was able to "move on." He is clearly future oriented at this point and he is denying suicidal thoughts. However, he continues to endorse feelings of depression and my only concern would be that he has taken a rapid "flight into health." The patient submitted a 72-hour notice that is up on Tuesday. My impression is that he will not meet criteria for involuntary hospitalization after another 2 or 3 days of observation, and I would anticipate that he will be discharged to home, with arrangements for continued treatment on an outpatient basis, on Tuesday. We spent quite a bit of time discussing the fact that I would recommend increasing his dose of venlafaxine, within the context of his report of a partial response and the fact that he is on a fairly low dose. However, the patient tells me that his preference would be to first try individual psychotherapy and then consider medication increases. 11/11 - Post Discharge Appointments Primary Care Physician Name Of Family Doctor: [facility] Date of Appointment with PCP: 11/13/18 Time of Appointment with PCP: 1:00 p.m. Provider Appointment Comment: [address] [place] [address] Psychiatrist Name of Psychiatrist: (will be using PCP as med provider) Therapist Name of Therapist: Claudio Sandhu - Dara Velasquez LPC Therapist's Date of Therapist Appointment: 11/15/18 Time of Therapist Appointment: 3:00 p.m. Therapy Appointment Comment: [address] [facility] [place] [address] Ethernet Network Architect Name of Ethernet Network Architect: None Smoking Cessation Counseling Tobacco Cessation Medication Prescribed at Discharge: Not Applicable/Non-Smoker Contact Information Discharge Discharge [address]: [address] [place] [id number] Discharge Plan Discharge Items Patient Disposition: Home - Self-Care Reason For Visit: DEPRESSION,SUICIDAL THOUGHTS Discharge Diagnosis: Depression Discharge Goals: Improve disease control, Improve function, Learn about illness , Specific goals and Therapeutic intervention Specific Goals: Refer for therapy Activity: Per 'Additional Instructions' section Non-emergency contact: Primary Care Provider and Therapist Call non-emergency contact if: you have any medication questions and your symptoms worsen Diet: Regular Addtl Provider Instructions: SPECIAL CARE INSTRUCTIONS: 1. Follow through with your scheduled aftercare appointments. If unable to keep an appointment, please call to reschedule. 2. Take your medication only as prescribed. Medication should not be changed or stopped without the approval of your doctor. In the event of worsening symptoms or concerns about side effects, contact your doctor immediately. 3. Utilize new healthy coping skills, anger management skills, and stress management skills learned during your hospitalization. Journal feelings and process them with a support person. Identify stressors or situations that may result in relapse, deterioration or inappropriate behaviors and develop a plan to deal with those issues. 4. If your coping skills are ineffective and you are in crisis, contact your outpatient providers for direction. If unable to reach your providers, please call the CAN HELP LINE AT or go to the closest Emergency Room. 5. Avoid alcohol and un-prescribed drugs. 6. You have been provided with the Mental Health Advance Directives Pamphlet for your review. AFTERCARE APPOINTMENTS: * Please call your insurance company prior to your scheduled appointment to confirm your aftercare providers are covered. Take your insurance information to your appointments. WHO TO CALL AND WHEN: Medical Emergencies: For questions or emergencies related to your hospital stay, please contact the Inpatient Behavioral Health Unit at [phone]. A electronics computer mechanic is on-call 30/05 for the Behavioral Health Unit for emergencies At any time you feel your situation is an emergency, you may also call 911 immediately. Your Doctors Instructions noted above were prepared by provider Maria Guadalupe Do MD. Prescriptions: Continue venlafaxine [Effexor XR] 75 mg Capsule,Extended Release 24hr 75 mg PO DAILY RF: 0 Visit Report Forms: [facility] Stand-Alone Forms: [employer] Discharge Orders: Discharge Order (Routine); Ordered 11/11/18 Ordered By: Maria Guadalupe Do Admission Data Admit Date/Time: 11/09/18 15:39 Attending Provider: Gianni Nair Admit Provider: Gianni Nair Primary Care Provider: PCP,NO Service: Psychiatry Other Interventions: PSY Interdisciplinary Discharge Planning Last Done: 11/10/18 14:16 Pending Studies at Discharge: No
[2018-11-11 13:56] VITALS: BP 114/66; PULSE 73
== END 2018-11-11 14:15 | disposition home or self-care (01) | DRG 881 ==
LOC: ED 11:48 → 3S 15:39

== ENCOUNTER 2019-09-09 03:34 | Inpatient (IN) ==
[2019-09-09] MEDS ORDERED: ACETAMINOPHEN 500 MG TAB PO STA (03:52)
[2019-09-09] MEDS ORDERED: metroNIDAZOLE 500 MG/100 ML BAG IV STA (03:52)
[2019-09-09] MEDS ORDERED: AMPICILLIN/SULBACTAM SOD 3,000 MG in 0.9 % SODIUM CHLORIDE 100 ML IV STA (03:52)
[2019-09-09] MEDS ORDERED: SODIUM CHLORIDE 0.9% 1000ML 1,000 ML IV ONE (03:52)
[2019-09-09] MEDS ORDERED: HYDROmorphone INJ 1 MG/ML SYRINGE IV STA (03:54)
[2019-09-09 05:07] LABS: C Reactive Protein 5.08 mg/dl (0-0.29); Calcium 9.4 mg/dl (8.5-10.1); Creatinine Clr Calc Pharmacy 174.6 ml/min; Est GFR (African American) 128.8; Est GFR (Non-African American) 111.1; Potassium 3.7 mmol/L (3.5-5.1)
[2019-09-09 05:24] LABS: Basophils # (auto) 0.01 K/uL (0-0.2); Basophils % (auto) 0.1 %; Eosinophils # (auto) 0.01 K/uL (0-0.5); Eosinophils % (auto) 0.1 %; Hematocrit (blood only) 45.5 % (42-52); Hemoglobin 16.4 g/dL (14.0-18.0); Immature Granulocytes # (auto) 0.02 K/uL (0.00-0.02); Immature Granulocytes % (auto) 0.2 %; Lymphocytes % (auto) 20.3 %; Mean Corpuscular Hemoglobin 30.5 pg (25-34); Mean Corpuscular Volume 84.7 fL (80-100); Mean Platelet Volume 9.5 fL (7.4-10.4); Monocytes # (auto) 1.54 K/uL (0.11-0.59); Monocytes % (auto) 14.2 %; Neutrophils # (auto) 7.05 K/uL (1.4-6.5); Neutrophils % (auto) 65.1 %; Platelet Count 149 K/uL (130-400); RDW Coefficient of Variation 12.7 % (11.5-14.5); RDW Standard Deviation 38.3 fL (36.4-46.3); Red Blood Count 5.37 M/uL (4.7-6.1); White Blood Count 10.83 K/uL (4.8-10.8)
[2019-09-09] MEDS ORDERED: HYDROmorphone INJ 0.5 MG/0.5 ML SYR IV STA (06:11)
--- NOTE | 2019-09-09 07:32 | Emergency Department Note ---
Entered by Adeel Jacobson acting as a scribe for ED Provider Note Name: Gio Whalen Age: 19 Arrives Via: Private Vehicle Informant: Patient CC: Facial Pain HPI: A male arrives for evaluation of constant facial pain starting 4 days ago. The patient notes the medications from yesterday helped a little. He denies having pain when looking around. He denies vomiting or having abdominal pain. The patient states he has increasing swelling of his face throughout the day. I evaluated the patient for the same problem yesterday. The patient was started on clindamycin and Toradol for his worsening facial pain. He came to the ED 24 hours ago and received Rocephin IV at that time. His clindamycin was increased to 300 mg QID and he was started on oxycodone IR for pain. ROS: See above HPI for pertinent positives & negatives. A total of 10 systems reviewed and were otherwise negative. Past Medical History: Depression, suicidal ideation Past Surgical History: No pertinent past surgical history. Family History: Family history non-contributory. Social History: Speaks Norwegian. Home Medications: Clindamycin, ketorolac, lorazepam, oxycodone, and venlafaxine Allergies No known allergies. Physical: Vitals: BP 142/92, P 130, R 20, O2 97%, Temp 97.7 Exam: GENERAL: Patient is uncomfortable appearing and in moderate distress. EYES: No scleral icterus, unremarkable pupils. ENT: Mucous membranes moist, no nasal congestion. Poor dentition. Erythema of left upper gumline. FACE: Cellulitis and swelling of the left maxillary face. Periorbital cellulitis and edema. NECK: No masses appreciated, no meningismus, trachea is midline. RESPIRATORY: No dyspnea. Clear to auscultation and equal bilaterally. No wheeze, no rhonchi. CARDIOVASCULAR: Tachycardic rate and regular rhythm. No murmurs, rubs, gallops appreciated. GASTROINTESTINAL: Abdomen soft, non-tender, no peritonitis. Bowel sounds positive. No masses appreciated. BACK: No midline tenderness, no CVA tenderness EXTREMITIES: Normal motion all extremities, no cyanosis, no edema. NEUROLOGIC: Alert and oriented, no acute motor or sensory deficits, no focal weakness, cranial nerves grossly intact. SKIN: No rash, no jaundice, no diaphoresis. ED Course: Prior Medical Record, Triage/Nursing Notes, Medications, Allergies reviewed by Me Vital Signs: reviewed and remarkable for tachy, HTN Labs: Reviewed and remarkable for crp elevation Interventions: saline lock, nss bolus 1 L IV, unasyn 3gm IV, flagyl 500mg IV, Dilaudid 1 mg IV Imaging: none Blood pressure: Normal. No Referral necessary Course: 0348: The patient was evaluated in room B5, and a complete history and physical examination were performed. 0459: I reevaluated the patient. He just received pain medications. He is starting to feel better. 0533: Dr. Gordillo was paged. 0537: I discussed the patient's case with Dr. Gordillo - [facility] Hospitalist. He will evaluate the patient for further management 0541: The patient is comfortable with hospitalization. Disposition: hospitalization Differentials: includes etiologies such as cellulitis, abscess, MRSA infection, DVT, necrotizing fasciitis, dermatitis, drug eruption, as well as others were entertained. Medical Decision Making: Pleasant 19 yr old male known to me from last night. Dental lucency noted on yesterday's CT but otherwise had been stable and feeling well at discharge. Arrives today with significantly increased swelling of left face including rj- orbital area. No evidence of orbital cellulitis by exam. No fluctuance nor cr epitus appreciated. Not ludwigs and breathing swallowing without difficulty. With failure of yesterdays IV rocephin as well as failure of QID Clinda 300mg PO I feel that he will need to come in . Cultures obtained and lactate OK. CRP up but pro-al OK thus not septic. No indication for repeat imaging at this time. Impression: Facial cellulitis Periorbital cellulitis Dental abscess Failure of outpatient treatment The scribe's documentation has been prepared under my direction and personally reviewed by me in its entirety. I confirm that the note above accurately reflects all work, treatment, procedures, and medical decision making performed by me. 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.) marital status: Single Current Living Situation: Family current occupational status: employed Feels Safe at Home: Yes Smoking Status: Never smoker Results & Data Vital Signs Vital Signs - 24 hr 09/09/19 03:36 09/09/19 05:03 09/09/19 06:30 Temperature 37.6 C H Temperature Source Oral Sepsis Recent Fever Within 48 Hours No Sepsis Action Taken by Nursing No Action Required Pulse Rate 130 H Pulse Rate [Right] 107 H 118 H Pulse Rhythm [Right] Regular Regular Pulse Strength [Right] Normal Normal Respiratory Rate 20 20 17 Respiratory Effort / Characteristics Non-Labored Non-Labored Spontaneous Non-Labored Spontaneous Respiratory Depth Normal Normal Normal Respiratory Pattern Regular Regular Blood Pressure 142/92 H Blood Pressure [Right Arm] 154/97 H 153/93 H Blood Pressure Mean 108 Blood Pressure Mean [Right Arm] 116 113 Blood Pressure Position Sitting Blood Pressure Position [Right Arm] Lying Lying Pulse Oximetry 97 100 96 Oxygen Delivery Method Room Air Room Air Room Air 09/09/19 07:13 Temperature Temperature Source Sepsis Recent Fever Within 48 Hours Sepsis Action Taken by Nursing Pulse Rate 119 H Pulse Rate [Right] Pulse Rhythm [Right] Pulse Strength [Right] Respiratory Rate 20 Respiratory Effort / Characteristics Respiratory Depth Respiratory Pattern Blood Pressure 133/76 Blood Pressure [Right Arm] Blood Pressure Mean Blood Pressure Mean [Right Arm] Blood Pressure Position Blood Pressure Position [Right Arm] Pulse Oximetry 94 Oxygen Delivery Method Room Air Home Medications Current Medication List: was personally reviewed by me Laboratory Data Attestation: I reviewed the patient's lab results. Result diagrams: 09/09/19 05:12 09/09/19 04:35 Lab Results 09/09/19 09/09/19 09/09/19 Range/Units 04:35 04:35 04:35 WBC Cancelled RBC Cancelled Hgb Cancelled Hct Cancelled MCV Cancelled MCH Cancelled MCHC Cancelled RDW Std Deviation Cancelled RDW Coeff of Ronaldo Cancelled Plt Count Cancelled MPV Cancelled Immature Gran % (Auto) Cancelled Neut % (Auto) Cancelled Lymph % (Auto) Cancelled Floyd % (Auto) Cancelled Eos % (Auto) Cancelled Baso % (Auto) Cancelled Immature Gran # (Auto) Cancelled Neut # (Auto) Cancelled Lymph # (Auto) Cancelled Floyd # (Auto) Cancelled Eos # (Auto) Cancelled Baso # (Auto) Cancelled Absolute Nucleated RBC Cancelled Nucleated RBC % (auto) Cancelled Neutrophils % (Manual) Cancelled Band Neutrophils % Cancelled Lymphocytes % (Manual) Cancelled Prolymphocyte % Cancelled Reactive Lymphs % (Man) Cancelled Monocytes % (Manual) Cancelled Eosinophils % (Manual) Cancelled Basophils % (Manual) Cancelled Metamyelocytes % (Man) Cancelled Myelocytes % (Man) Cancelled Promyelocytes % (Man) Cancelled Blast Cells % (Manual) Cancelled Plasma Cell % (Manual) Cancelled Other Cells % Cancelled Nucleated RBC % Cancelled Neutrophils # (Manual) Cancelled Band Neutrophils # Cancelled Total Absolute Neuts Cancelled Lymphocytes # (Manual) Cancelled Prolymphocyte # Cancelled Reactive Lymphs # Cancelled Total Abs Lymphocytes Cancelled Monocytes # (Manual) Cancelled Eosinophils # (Manual) Cancelled Basophils # (Manual) Cancelled Metamyelocytes # (Man) Cancelled Myelocytes # (Manual) Cancelled Promyelocytes # (Man) Cancelled Blast Cells # (Man) Cancelled Plasma Cell # (Manual) Cancelled Other Cells # Cancelled Nucleated RBCs # (Man) Cancelled Hypersegmented Neuts Cancelled Hyposegmented Neuts Cancelled Hypogranular Neuts Cancelled Large Granular Lymphs Cancelled # Lrg Granular Lymphs Cancelled Hairy Cells Cancelled Smudge Cells Cancelled Toxic Granulation Cancelled Toxic Vacuolation Cancelled Dohle Bodies Cancelled Belkis Rods Cancelled Platelet Estimate Cancelled Hypogranular Platelets Cancelled Clumped Platelets Cancelled Giant Platelets Cancelled Platelet Satelliting Cancelled RBC Morphology Cancelled Polychromasia Cancelled Hypochromasia Cancelled Poikilocytosis Cancelled Basophilic Stippling Cancelled Anisocytosis Cancelled Microcytosis Cancelled Macrocytosis Cancelled Spherocytes Cancelled Pappenheimer Bodies Cancelled Sickle Cells Cancelled Target Cells Cancelled Tear Drop Cells Cancelled Ovalocytes Cancelled Stomatocytes Cancelled Polo-Geddes Bodies Cancelled Echinocytes Cancelled Acanthocytes (Spur) Cancelled Rouleaux Cancelled RBC Agglutinates Cancelled Schistocytes Cancelled RBC Morph Comment Cancelled Sezary Cell Cancelled Sodium 134 L (136-145) mmol/L Potassium 3.7 (3.5-5.1) mmol/L Chloride 100 (98-107) mmol/L Carbon Dioxide 28 (21-32) mmol/L Anion Gap 6.0 (3-11) BUN 8 (7-18) mg/dl Creatinine 0.97 (0.6-1.4) mg/dl Est Cr Clr Drug Dosing 174.6 ml/min Est GFR ( Amer) 128.8 Est GFR (Non-Af Amer) 111.1 BUN/Creatinine Ratio 8.0 L (10-20) Glucose 105 H (70-99) mg/dl Lactate 1.9 (0.4-2.0) mmol/L Calcium 9.4 (8.5-10.1) mg/dl C-Reactive Protein 5.08 H (0-0.29) mg/dl Procalcitonin (0-0.5) ng/ml 09/09/19 09/09/19 Range/Units 04:35 05:12 WBC 10.83 H RBC 5.37 Hgb 16.4 Hct 45.5 MCV 84.7 MCH 30.5 MCHC 36.0 RDW Std Deviation 38.3 RDW Coeff of Ronaldo 12.7 Plt Count 149 MPV 9.5 Immature Gran % (Auto) 0.2 Neut % (Auto) 65.1 Lymph % (Auto) 20.3 Floyd % (Auto) 14.2 Eos % (Auto) 0.1 Baso % (Auto) 0.1 Immature Gran # (Auto) 0.02 Neut # (Auto) 7.05 H Lymph # (Auto) 2.20 Floyd # (Auto) 1.54 H Eos # (Auto) 0.01 Baso # (Auto) 0.01 Absolute Nucleated RBC Nucleated RBC % (auto) Neutrophils % (Manual) Band Neutrophils % Lymphocytes % (Manual) Prolymphocyte % Reactive Lymphs % (Man) Monocytes % (Manual) Eosinophils % (Manual) Basophils % (Manual) Metamyelocytes % (Man) Myelocytes % (Man) Promyelocytes % (Man) Blast Cells % (Manual) Plasma Cell % (Manual) Other Cells % Nucleated RBC % Neutrophils # (Manual) Band Neutrophils # Total Absolute Neuts Lymphocytes # (Manual) Prolymphocyte # Reactive Lymphs # Total Abs Lymphocytes Monocytes # (Manual) Eosinophils # (Manual) Basophils # (Manual) Metamyelocytes # (Man) Myelocytes # (Manual) Promyelocytes # (Man) Blast Cells # (Man) Plasma Cell # (Manual) Other Cells # Nucleated RBCs # (Man) Hypersegmented Neuts Hyposegmented Neuts Hypogranular Neuts Large Granular Lymphs # Lrg Granular Lymphs Hairy Cells Smudge Cells Toxic Granulation Toxic Vacuolation Dohle Bodies Belkis Rods Platelet Estimate Hypogranular Platelets Clumped Platelets Giant Platelets Platelet Satelliting RBC Morphology Polychromasia Hypochromasia Poikilocytosis Basophilic Stippling Anisocytosis Microcytosis Macrocytosis Spherocytes Pappenheimer Bodies Sickle Cells Target Cells Tear Drop Cells Ovalocytes Stomatocytes Polo-Geddes Bodies Echinocytes Acanthocytes (Spur) Rouleaux RBC Agglutinates Schistocytes RBC Morph Comment Sezary Cell Sodium (136-145) mmol/L Potassium (3.5-5.1) mmol/L Chloride (98-107) mmol/L Carbon Dioxide (21-32) mmol/L Anion Gap (3-11) BUN (7-18) mg/dl Creatinine (0.6-1.4) mg/dl Est Cr Clr Drug Dosing ml/min Est GFR ( Amer) Est GFR (Non-Af Amer) BUN/Creatinine Ratio (10-20) Glucose (70-99) mg/dl Lactate (0.4-2.0) mmol/L Calcium (8.5-10.1) mg/dl C-Reactive Protein (0-0.29) mg/dl Procalcitonin 0.07 (0-0.5) ng/ml Administered Medications Discontinued Medications Acetaminophen (Tylenol) 1,000 mg PO NOW STA Stop: 09/09/19 03:53 Last Admin: 09/09/19 04:46 Dose: 1,000 mg Documented by: [id number] Hydromorphone HCl (Dilaudid) 1 mg IV NOW STA Stop: 09/09/19 03:55 Last Admin: 09/09/19 04:52 Dose: 1 mg Documented by: [id number] Hydromorphone HCl (Dilaudid) 0.5 mg IV NOW STA Stop: 09/09/19 06:12 Last Admin: 09/09/19 06:30 Dose: 0.5 mg Documented by: [id number] Metronidazole (Flagyl) 500 mg in 100 mls @ 100 mls/hr IV NOW STA Stop: 09/09/19 04:51 Last Infusion: 09/09/19 05:50 Dose: 0 mls/hr Documented by: [id number] Admin: 09/09/19 04:50 Dose: 100 mls/hr Documented by: [id number] Sodium Chloride (Nss 1000ml) 1,000 mls @ 999 mls/hr IV .Q1H1M ONE Stop: 09/09/19 04:52 Last Infusion: 09/09/19 05:50 Dose: 0 mls/hr Documented by: [id number] Admin: 09/09/19 04:50 Dose: 999 mls/hr Documented by: [id number] Ampicillin Sodium/Sulbactam Sodium 3,000 mg/ Sodium Chloride 108 mls @ 200 mls/hr IV NOW STA; Protocol Stop: 09/09/19 04:24 Last Infusion: 09/09/19 05:50 Dose: 0 mls/hr Documented by: [id number] Admin: 09/09/19 04:47 Dose: 200 mls/hr Documented by: [id number] Medical Decision Making Home Medications Current Medication List: was personally reviewed by me Laboratory Data Attestation: I reviewed the patient's lab results. Result diagrams: 09/09/19 05:12 09/09/19 04:35 Lab Results 09/09/19 09/09/19 09/09/19 Range/Units 04:35 04:35 04:35 WBC Cancelled RBC Cancelled Hgb Cancelled Hct Cancelled MCV Cancelled MCH Cancelled MCHC Cancelled RDW Std Deviation Cancelled RDW Coeff of Ronaldo Cancelled Plt Count Cancelled MPV Cancelled Immature Gran % (Auto) Cancelled Neut % (Auto) Cancelled Lymph % (Auto) Cancelled Floyd % (Auto) Cancelled Eos % (Auto) Cancelled Baso % (Auto) Cancelled Immature Gran # (Auto) Cancelled Neut # (Auto) Cancelled Lymph # (Auto) Cancelled Floyd # (Auto) Cancelled Eos # (Auto) Cancelled Baso # (Auto) Cancelled Absolute Nucleated RBC Cancelled Nucleated RBC % (auto) Cancelled Neutrophils % (Manual) Cancelled Band Neutrophils % Cancelled Lymphocytes % (Manual) Cancelled Prolymphocyte % Cancelled Reactive Lymphs % (Man) Cancelled Monocytes % (Manual) Cancelled Eosinophils % (Manual) Cancelled Basophils % (Manual) Cancelled Metamyelocytes % (Man) Cancelled Myelocytes % (Man) Cancelled Promyelocytes % (Man) Cancelled Blast Cells % (Manual) Cancelled Plasma Cell % (Manual) Cancelled Other Cells % Cancelled Nucleated RBC % Cancelled Neutrophils # (Manual) Cancelled Band Neutrophils # Cancelled Total Absolute Neuts Cancelled Lymphocytes # (Manual) Cancelled Prolymphocyte # Cancelled Reactive Lymphs # Cancelled Total Abs Lymphocytes Cancelled Monocytes # (Manual) Cancelled Eosinophils # (Manual) Cancelled Basophils # (Manual) Cancelled Metamyelocytes # (Man) Cancelled Myelocytes # (Manual) Cancelled Promyelocytes # (Man) Cancelled Blast Cells # (Man) Cancelled Plasma Cell # (Manual) Cancelled Other Cells # Cancelled Nucleated RBCs # (Man) Cancelled Hypersegmented Neuts Cancelled Hyposegmented Neuts Cancelled Hypogranular Neuts Cancelled Large Granular Lymphs Cancelled # Lrg Granular Lymphs Cancelled Hairy Cells Cancelled Smudge Cells Cancelled Toxic Granulation Cancelled Toxic Vacuolation Cancelled Dohle Bodies Cancelled Belkis Rods Cancelled Platelet Estimate Cancelled Hypogranular Platelets Cancelled Clumped Platelets Cancelled Giant Platelets Cancelled Platelet Satelliting Cancelled RBC Morphology Cancelled Polychromasia Cancelled Hypochromasia Cancelled Poikilocytosis Cancelled Basophilic Stippling Cancelled Anisocytosis Cancelled Microcytosis Cancelled Macrocytosis Cancelled Spherocytes Cancelled Pappenheimer Bodies Cancelled Sickle Cells Cancelled Target Cells Cancelled Tear Drop Cells Cancelled Ovalocytes Cancelled Stomatocytes Cancelled Polo-Geddes Bodies Cancelled Echinocytes Cancelled Acanthocytes (Spur) Cancelled Rouleaux Cancelled RBC Agglutinates Cancelled Schistocytes Cancelled RBC Morph Comment Cancelled Sezary Cell Cancelled Sodium 134 L (136-145) mmol/L Potassium 3.7 (3.5-5.1) mmol/L Chloride 100 (98-107) mmol/L Carbon Dioxide 28 (21-32) mmol/L Anion Gap 6.0 (3-11) BUN 8 (7-18) mg/dl Creatinine 0.97 (0.6-1.4) mg/dl Est Cr Clr Drug Dosing 174.6 ml/min Est GFR ( Amer) 128.8 Est GFR (Non-Af Amer) 111.1 BUN/Creatinine Ratio 8.0 L (10-20) Glucose 105 H (70-99) mg/dl Lactate 1.9 (0.4-2.0) mmol/L Calcium 9.4 (8.5-10.1) mg/dl C-Reactive Protein 5.08 H (0-0.29) mg/dl Procalcitonin (0-0.5) ng/ml 09/09/19 09/09/19 Range/Units 04:35 05:12 WBC 10.83 H RBC 5.37 Hgb 16.4 Hct 45.5 MCV 84.7 MCH 30.5 MCHC 36.0 RDW Std Deviation 38.3 RDW Coeff of Ronaldo 12.7 Plt Count 149 MPV 9.5 Immature Gran % (Auto) 0.2 Neut % (Auto) 65.1 Lymph % (Auto) 20.3 Floyd % (Auto) 14.2 Eos % (Auto) 0.1 Baso % (Auto) 0.1 Immature Gran # (Auto) 0.02 Neut # (Auto) 7.05 H Lymph # (Auto) 2.20 Floyd # (Auto) 1.54 H Eos # (Auto) 0.01 Baso # (Auto) 0.01 Absolute Nucleated RBC Nucleated RBC % (auto) Neutrophils % (Manual) Band Neutrophils % Lymphocytes % (Manual) Prolymphocyte % Reactive Lymphs % (Man) Monocytes % (Manual) Eosinophils % (Manual) Basophils % (Manual) Metamyelocytes % (Man) Myelocytes % (Man) Promyelocytes % (Man) Blast Cells % (Manual) Plasma Cell % (Manual) Other Cells % Nucleated RBC % Neutrophils # (Manual) Band Neutrophils # Total Absolute Neuts Lymphocytes # (Manual) Prolymphocyte # Reactive Lymphs # Total Abs Lymphocytes Monocytes # (Manual) Eosinophils # (Manual) Basophils # (Manual) Metamyelocytes # (Man) Myelocytes # (Manual) Promyelocytes # (Man) Blast Cells # (Man) Plasma Cell # (Manual) Other Cells # Nucleated RBCs # (Man) Hypersegmented Neuts Hyposegmented Neuts Hypogranular Neuts Large Granular Lymphs # Lrg Granular Lymphs Hairy Cells Smudge Cells Toxic Granulation Toxic Vacuolation Dohle Bodies Belkis Rods Platelet Estimate Hypogranular Platelets Clumped Platelets Giant Platelets Platelet Satelliting RBC Morphology Polychromasia Hypochromasia Poikilocytosis Basophilic Stippling Anisocytosis Microcytosis Macrocytosis Spherocytes Pappenheimer Bodies Sickle Cells Target Cells Tear Drop Cells Ovalocytes Stomatocytes Polo-Geddes Bodies Echinocytes Acanthocytes (Spur) Rouleaux RBC Agglutinates Schistocytes RBC Morph Comment Sezary Cell Sodium (136-145) mmol/L Potassium (3.5-5.1) mmol/L Chloride (98-107) mmol/L Carbon Dioxide (21-32) mmol/L Anion Gap (3-11) BUN (7-18) mg/dl Creatinine (0.6-1.4) mg/dl Est Cr Clr Drug Dosing ml/min Est GFR ( Amer) Est GFR (Non-Af Amer) BUN/Creatinine Ratio (10-20) Glucose (70-99) mg/dl Lactate (0.4-2.0) mmol/L Calcium (8.5-10.1) mg/dl C-Reactive Protein (0-0.29) mg/dl Procalcitonin 0.07 (0-0.5) ng/ml MDM Narrative Discharge Plan Visit Data Chief Complaint: Dental/Oral Stated Complaint: FACE SWELLING,DENTAL PAIN ED Provider: Souleymane Harrington Discharge Problem: Facial cellulitis, Dental abscess, Periorbital cellulitis, Failure of outpatient treatment Discharge Instructions Interventions: ED Discharge Assessment Last Done: 09/09/19 07:13 Forms Stand Alone Forms: My [facility] Prescriptions Prescriptions: No Action oxycodone 5 mg tablet 5 - 10 mg PO Q6H PRN (Reason: pain) Qty: 12 RF: 0 clindamycin HCl 300 mg capsule 300 mg PO Q6H 10 Days Qty: 10 RF: 0 Trintellix 5 mg 5 mg PO DAILY RF: 0 venlafaxine 75 mg capsule,extended release 24hr 75 mg PO DAILY RF: 0 Referrals Referrals: Tip Cosby PA-C [Primary Care Provider] - Discharge Problem: Periorbital cellulitis Qualifiers: Laterality: right Qualified Code(s): L03.213 - Periorbital cellulitis The scribe's documentation has been prepared under my direction and personally reviewed by me in its entirety. I confirm that the note above accurately reflects all work, treatment, procedures, and medical decision making performed by me.
[2019-09-09] MEDS ORDERED: ACETAMINOPHEN 325 MG TAB PO PRN (07:44)
[2019-09-09] MEDS ORDERED: HYDROmorphone INJ 0.5 MG/0.5 ML SYR IV PRN (07:44)
[2019-09-09] MEDS ORDERED: POLYETHYLENE (MIRALAX) 17 GM PACK PO PRN (07:44)
[2019-09-09] MEDS ORDERED: ONDANSETRON INJ 2 MG/ML 2 ML VIAL IV PRN (07:44)
[2019-09-09] MEDS ORDERED: OXYCODONE HCL IR 5 MG TAB (IMMEDIATE RELEASE) PO PRN (07:44)
[2019-09-09] MEDS ORDERED: AMPICILLIN/SULBACTAM CONSULT ACTIVE PRN (07:49)
[2019-09-09] MEDS ORDERED: SODIUM CHLORIDE 0.9% 1000ML 1,000 ML IV SCH (08:00)
[2019-09-09] MEDS ORDERED: CONSULT PHARMACY STA (08:59)
[2019-09-09] MEDS ORDERED: VORTIOXETINE HYDROBROMIDE 5 MG PO SCH (09:00)
[2019-09-09] MEDS ORDERED: VANCOMYCIN CONSULT ACTIVE PRN (09:10)
--- NOTE | 2019-09-09 09:16 | History and Physical Report ---
DATE OF ADMISSION: 09/09/2019 CHIEF COMPLAINT: Dental infection and left facial cellulitis. HISTORY OF PRESENT ILLNESS: This is a 19-year-old male with past medical history significant for anxiety, depression, comes with a dental infection, left facial cellulitis. The patient developed left-sided toothache and infection last . [facility] was given [facility] but it was not getting better, so he came to the [facility] ER yesterday with worsening pain and he was given a dose of Rocephin and discharged on clindamycin with increased dose . and also pain medication oxycodone. The patient again comes back today because he noted his left face was swollen and had significant pain. Denies any fever, chills at home, but in the ER he had low grade fever. Because of his ongoing symptoms, we have called for admission. The patient is given Unasyn and Flagyl in the ER. Currently, after pain medication the pain is improved but on opening the mouth and on movement the pain came back. Has some headaches and while he is ambulating he feels some dizziness. No blurred vision, no sore throat. No cough, no nausea, no vomiting, no chest pain or shortness of breath. No abdominal pain. Normal bowel and bladder movements. No hematuria, no burning micturition. No melena or hematochezia. No swelling in the legs, no rash. ALLERGIES: No known drug allergies. PAST MEDICAL HISTORY: As mentioned above. PAST SURGICAL HISTORY: None. MEDICATIONS: He is on clindamycin, venlafaxine and Trintellix. FAMILY HISTORY: Significant for mother who has high blood pressure. SOCIAL HISTORY: Denies smoking, alcohol socially. No drug use. Lives with his parents. REVIEW OF SYMPTOMS: As per HPI. Rest of review of systems negative. PHYSICAL EXAMINATION: GENERAL: The patient is obese, not in acute distress. VITAL SIGNS: Temperature 37.6, pulse 107, respiratory rate 20, blood pressure 154/97, oxygen 100% room air. HEENT: Has left-sided facial swelling with mild erythematic changes and mild left periorbital edema. Eyes pupils equal and reactive to light. Oral mucosa moist and some mild skin changes in gums seen in the left upper last two teeth. NECK: No JVD, no neck masses. CARDIOVASCULAR: S1, S2 heard, regular rate and rhythm, no murmur, no gallop. RESPIRATORY SYSTEM: Normal AP diameter. No accessory muscle use. No wheezing, no crackles. ABDOMEN: Soft, bowel sounds present, nontender. No distention. CENTRAL NERVOUS SYSTEM: Cranial nerves II-XII grossly nonfocal. EXTREMITIES: No edema, no erythema. LABORATORY DATA: WBC 10.8, hemoglobin 16.4, hematocrit 45.5, platelets 149. Sodium 134, potassium 3.7, chloride 100, bicarbonate 28, BUN 8, creatinine 0.9, serum glucose 105. Lactate 1.9, calcium 9.4. C-reactive protein 5.3. Procalcitonin 0.07. ASSESSMENT AND PLAN: This 19-year-old male who presents with dental infection and left facial cellulitis. 1. Dental infection and left facial cellulitis. Failed outpatient treatment with p.o. clindamycin, received IV Unasyn and IV Flagyl in the ER, which he will continue. We will keep him on full liquid diet for now. If symptoms improve we will advance the diet. If infection is not improved, we will consult oral surgeon in the hospital, monitor on the medical floor. Place him on gentle fluids. 2. History of depression and anxiety. Continue venlafaxine and Trintellix. 3. Deep venous thrombosis prophylaxis, sequential compression devices. DISPOSITION: Admit to medical floor. Expect discharge home and follow with his family doctor. Level 1, full code. MTDD
[2019-09-09] MEDS ORDERED: VANCOMYCIN HCL 2,750 MG in SODIUM CHLORIDE 0.9% 500 ML IV ONE (09:30)
[2019-09-09] MEDS: VORTIOXETINE HYDROBROMIDE 5 MG PO SCH (10:41)
[2019-09-09] MEDS: VENLAFAXINE HCL XR 75 MG CAPXR PO SCH (10:41)
[2019-09-09] MEDS: AMPICILLIN/SULBACTAM SOD 3,000 MG in 0.9 % SODIUM CHLORIDE 100 ML IV SCH ×3 (10:41→21:34)
[2019-09-09] MEDS ORDERED: hydrOXYzine HCl 10 MG TAB PO PRN (10:58)
[2019-09-09] MEDS ORDERED: DiphenhydrAMINE HCL 50 MG/ML VIAL IV STA (10:58)
[2019-09-09] MEDS ORDERED: metroNIDAZOLE 500 MG/100 ML BAG IV SCH (12:00)
[2019-09-09] MEDS: SODIUM CHLORIDE 0.9% 1000ML 1,000 ML IV SCH ×2 (13:44→21:33)
--- NOTE | 2019-09-09 15:13 | Pharmacy Report ---
Pharmacy Abx Initial Consult - Date of Service September 09, 2019 - Pharmacy Dosing Scope Date of Consult: 09/09/19 Consultation requested by: Dr. Michelle Pharmacy is consulted to initiate Vancomycin IV dosing therapy, order appropriate labs and adjust drug dose/frequency. - Subjective The patient is a 19 year old M admitted on 09/09/19 06:15. - Objective Height: 6 ft 1 in Weight: 136.7 kg (BMI 39.8) Vital Signs (Past 12hrs): Vital Signs Temp Pulse Pulse Resp BP BP Pulse Ox 09/09/19 11:10 36.9 C 09/09/19 08:37 37.5 C 114 H 09/09/19 07:44 38.4 C H 132 H 16 126/80 97 09/09/19 07:13 119 H 20 133/76 94 09/09/19 06:30 118 H 17 153/93 H 96 09/09/19 05:03 107 H 20 154/97 H 100 09/09/19 03:36 37.6 C H 130 H 20 142/92 H 97 Lab Results (24hrs): Laboratory Tests (24 Hours) 09/09/19 09/09/19 09/09/19 05:12 04:35 04:35 WBC 10.83 H Neut # (Auto) 7.05 H Creatinine 0.97 Est Cr Clr Drug Dosing 174.6 C-Reactive Protein 5.08 H Procalcitonin 0.07 09/09/19 04:35 WBC Cancelled Neut # (Auto) Cancelled Creatinine Est Cr Clr Drug Dosing C-Reactive Protein Procalcitonin Micro Results: 09/09/19 04:35 Aerobic Blood Culture - Pending Blood Anaerobic Blood Culture - Pending 09/09/19 04:15 Aerobic Blood Culture - Pending Blood Anaerobic Blood Culture - Pending - Risk Factors for Resistance * Antimicrobial use within the last 90 days Clindamycin/Rocephin - Assessment & Plan Assessment 19 year old M with dental infection/left facial cellulitis/periorbital cellulitis and edema. Has had constant facial pain starting 4 days ago. Seen in ER yesterday and sent home on Clindamycin 300mg QID. Returns today due to no improvement Plan Vancomcyin for treatment of facial cellulitis Vancomycin IV * Estimated PK Parameters: Vd 0.54 L/kg, Miguel 0.104 hr-1, t1/2 6.7 hr * Loading dose: 2750 mg (20.1 mg/kg) * Maintenance dose: 1750 mg IV (12.8 mg/kg) every 8 hours * Goal trough level for cellulitis : ~ 15 mcg/mL * Trough/Random level ordered for 09/10/19 @ 1730 * A less than traditional dose and/or extended dosing interval has/have been selected due to likelihood of drug accumulation in obese patient/patient with h/o CKD. Pharmacy will continue to follow and will adjust dose/frequency as necessary. Thank you.
--- NOTE | 2019-09-09 17:32 | Hospitalist Progress Note ---
Date of Service September 09, 2019 Assessment & Plan (1) Facial cellulitis: ?developing sepsis with fever and tachycardia. Cont NSS at 200cc/hr times two bags, then cont at 125ml/hr rate. Lactate normal. WBC normal. Cont Unasyn and add Vancomycin. Stopped Flagyl. No abscess so will not involve surgery at this time. Reassessed later in the day and the swelling and redness had improved after about 12 hours on abx. Mother was at bedside and updated. Patient is starting to feel better. Blood cultures are pending. (2) Sepsis: plan as above. (3) Depression: Cont Trintellix and Effexor per home regimen. (4) DVT prophylaxis: Lovenox. Full Code Dispo-plan for home when infection improves and patient is medically stable. Sheba Michelle [facility] Subject[facility] Pain and swelling occurred spontaneously approximately 4 days ago. Patient was seen in [place] ER and did not improve after discharge. He was then seen in the [facility] ER and was given more clindamycin and a shot of Rocephin but still continued to decline. He re-presented overnight with increased swelling and pain in the left face and mouth with the worst pain around the teeth. Face CT yesterday revealed a periapical lucency in this area with no evidence of abscess. The patient denies any sore throat, trouble swallowing, or neck pain. There is no neck lymphadenopathy on exam. He is able to open and close his mouth. There is no evidence of deviated uvula or erythema in the oropharynx which appears clear on exam. Extraocular muscles are intact without evidence of pain during this exam. There is no effect to his vision. Review of Systems Review of Systems: All systems reviewed & are unremarkable except as noted in HPI & below Physical Exam Physical Exam: CONSTITUTIONAL: obese, vitals as above, generally ill- appearing and fatigued. EYES: EOMI bilaterally, PERRL, normal conjunctivae, no scleral icterus ENT: external ear and nose normal, oropharynx clear, Left facial swelling, poor dentition, no evidence of pus around dentition. Normal tongue. NECK: trachea midline, no lymphadenopathy RESPIRATORY: clear to auscultation bilaterally, no crackles, rales or wheezes, normal respiratory effort CARDIOVASCULAR: tachy rate and regular rhythm, S1 and 2 heard without murmurs, gallops or rubs, no JVD, no peripheral edema GASTROINTESTINAL: normal bowel sounds, soft, nontender,nondistended MUSCULOSKELETAL: strength 5/5 throughout, head is normocephalic and atraumatic SKIN: warm and dry, erythema on left half of face associated with swelling. NEUROLOGIC: CN 2-12 grossly intact, no sensory deficit, normal cognition,normal speech. No drooling noted. No gross focal deficit. PSYCHIATRIC: alert cooperative and oriented Results & Data Vital Signs (Past 12 Hours) Vital Signs Temp Pulse Pulse Resp BP BP Pulse Ox 09/09/19 15:42 37.9 C H 110 H 20 132/79 95 09/09/19 11:10 36.9 C 09/09/19 08:37 37.5 C 114 H 09/09/19 07:44 38.4 C H 132 H 16 126/80 97 09/09/19 07:13 119 H 20 133/76 94 09/09/19 06:30 118 H 17 153/93 H 96 Laboratory Results Short CBC 09/09/19 09/09/19 Range/Units 04:35 05:12 WBC Cancelled 10.83 H Hgb Cancelled 16.4 Hct Cancelled 45.5 Plt Count Cancelled 149 BMP 09/09/19 04:35 Sodium 134 L Potassium 3.7 Chloride 100 Carbon Dioxide 28 BUN 8 Creatinine 0.97 Glucose 105 H Calcium 9.4 Medications Administered Current Inpatient Medications Acetaminophen (Tylenol) 650 mg PO Q4H PRN PRN Reason: pain/fever Stop: 10/09/19 07:43 Last Admin: 09/09/19 17:23 Dose: 650 mg Documented by: Hydromorphone HCl (Dilaudid) 0.5 mg IV Q3H PRN PRN Reason: Pain Stop: 09/23/19 07:43 Hydroxyzine HCl (Vistaril) 10 mg PO Q8H PRN PRN Reason: Itching Stop: 10/09/19 10:57 Ampicillin Sodium/Sulbactam Sodium 3,000 mg/ Sodium Chloride 108 mls @ 200 mls/hr IV Q6H ANA MARIA; Protocol Stop: 09/19/19 09:59 Last Admin: 09/09/19 17:03 Dose: 200 mls/hr Documented by: Sodium Chloride (Nss 1000ml) 1,000 mls @ 200 mls/hr IV .Q5H ANA MARIA Stop: 09/09/19 17:59 Last Infusion: 09/09/19 13:40 Dose: Infused Documented by: Sodium Chloride (Nss 1000ml) 1,000 mls @ 125 mls/hr IV .Q8H ANA MARIA Stop: 10/09/19 14:59 Last Admin: 09/09/19 13:44 Dose: 125 mls/hr Documented by: Vancomycin HCl 1,750 mg/ (Sodium Chloride) 535 mls @ 200 mls/hr IV Q8H ANA MARIA Stop: 09/19/19 17:59 Miscellaneous Information (Ampicillin/Sulbactam Consult) 1 ea N/A UD PRN PRN Reason: Consult Stop: 10/09/19 07:48 Miscellaneous Information (Consult) 1 ea N/A UD PRN PRN Reason: Consult Stop: 10/09/19 09:09 Ondansetron HCl (Zofran) 4 mg IV Q6H PRN PRN Reason: Nausea Stop: 10/09/19 07:43 Oxycodone HCl (Roxicodone Immediate Rel) 5 - 10 mg PO Q6H PRN PRN Reason: pain Stop: 09/23/19 07:43 Polyethylene Glycol (Miralax Powder Packet) 17 gm PO DAILY PRN PRN Reason: Constipation Stop: 10/09/19 07:43 Venlafaxine HCl (Effexor Extended Release) 75 mg PO DAILY [facility] Stop: 10/09/19 08:59 Last Admin: 09/09/19 10:41 Dose: 75 mg Documented by: Vortioxetine (Trintellix) 1 ea PO DAILY [facility]; Protocol Stop: 10/09/19 08:59 Last Admin: 09/09/19 10:41 Dose: 1 ea Documented by: (1) Depression Depression Type: unspecified Qualified Code(s): F32.9 - Major depressive disorder, single episode, unspecified
[2019-09-09] MEDS: VANCOMYCIN HCL 1,750 MG in SODIUM CHLORIDE 0.9% 500 ML IV SCH (17:51)
[2019-09-09] MEDS: ENOXAPARIN INJ 40 MG/0.4 ML SYR SQ SCH (20:45)
[2019-09-10] MEDS: VANCOMYCIN HCL 1,750 MG in SODIUM CHLORIDE 0.9% 500 ML IV SCH ×3 (02:07→18:23)
[2019-09-10] MEDS: AMPICILLIN/SULBACTAM SOD 3,000 MG in 0.9 % SODIUM CHLORIDE 100 ML IV SCH ×3 (04:31→15:35)
[2019-09-10] MEDS: SODIUM CHLORIDE 0.9% 1000ML 1,000 ML IV SCH ×2 (05:08→13:08)
[2019-09-10 05:35] LABS: Basophils # (auto) 0.01 K/uL (0-0.2); Basophils % (auto) 0.1 %; Eosinophils # (auto) 0.05 K/uL (0-0.5); Eosinophils % (auto) 0.6 %; Hematocrit (blood only) 39.9 % (42-52); Hemoglobin 13.8 g/dL (14.0-18.0); Immature Granulocytes # (auto) 0.01 K/uL (0.00-0.02); Immature Granulocytes % (auto) 0.1 %; Lymphocytes # (auto) 2.65 K/uL (1.2-3.4); Lymphocytes % (auto) 31.8 %; Mean Corpuscular Hemoglobin 29.6 pg (25-34); Mean Corpuscular Hgb Conc 34.6 g/dL (32-36); Mean Corpuscular Volume 85.4 fL (80-100); Mean Platelet Volume 9.4 fL (7.4-10.4); Monocytes # (auto) 1.18 K/uL (0.11-0.59); Monocytes % (auto) 14.2 %; Neutrophils # (auto) 4.43 K/uL (1.4-6.5); Neutrophils % (auto) 53.2 %; Platelet Count 133 K/uL (130-400); RDW Coefficient of Variation 12.7 % (11.5-14.5); RDW Standard Deviation 38.6 fL (36.4-46.3); Red Blood Count 4.67 M/uL (4.7-6.1); White Blood Count 8.33 K/uL (4.8-10.8)
[2019-09-10 06:09] LABS: BUN Creatinine Ratio 8.3 (10-20); Blood Urea Nitrogen 6 mg/dl (7-18); Calcium 8.4 mg/dl (8.5-10.1); Carbon Dioxide 27 mmol/L (21-32); Chloride 106 mmol/L (98-107); Creatinine Clr Calc Pharmacy 223.2 ml/min; Est GFR (African American) > 150.0; Est GFR (Non-African American) 130.4; Glucose 98 mg/dl (70-99); Magnesium 1.8 mg/dl (1.8-2.4); Potassium 3.4 mmol/L (3.5-5.1); Sodium 139 mmol/L (136-145)
[2019-09-10] MEDS: VENLAFAXINE HCL XR 75 MG CAPXR PO SCH (09:14)
[2019-09-10] MEDS: VORTIOXETINE HYDROBROMIDE 5 MG PO SCH (09:14)
--- NOTE | 2019-09-10 16:23 | Hospitalist Progress Note ---
Date of Service September 10, 2019 Assessment & Plan (1) Facial cellulitis: Fever resolved and heart rate improved with antibiotics. Cont broad spectrum abx throughout the day and switch to Bactrim/Augmentin later tonight or tomorrow. Needs close dental follow-up. Clinically improved. (2) Sepsis: resuscitated. (3) Depression: Stable, Cont Trintellix and Effexor per home regimen. (4) DVT prophylaxis: Lovenox. Full Code Dispo-plan for home when infection improves and patient is medically stable, likely tomorrow evening. Sheba Michelle DO [facility] Hospitalist Subjective swelling, erythema and pain continue to improve. Afebrile overnight without chills. Denies throat pain or difficulty swallowing. Able to palpate swollen face today because of improvement in pain and no palpable lymph nodes or areas of fluctuance noted. Tolerating PO Review of Systems Review of Systems: All systems reviewed & are unremarkable except as noted in HPI & below Physical Exam Physical Exam: CONSTITUTIONAL: obese, vitals as above, generally ill- appearing and fatigued. EYES: injected sclerae on left eye, no scleral icterus ENT: external ear and nose normal, oropharynx clear, Left facial swelling and erythema that has improved, poor dentition, no evidence of pus around dentition. Normal tongue. NECK: trachea midline, no lymphadenopathy RESPIRATORY: clear to auscultation bilaterally, no crackles, rales or wheezes, normal respiratory effort CARDIOVASCULAR: regular rate and regular rhythm, S1 and 2 heard without murmurs, gallops or rubs, no JVD, no peripheral edema GASTROINTESTINAL: normal bowel sounds, soft, nontender, nondistended MUSCULOSKELETAL: strength 5/5 throughout, head is normocephalic and atraumatic SKIN: warm and dry, erythema on left half of face associated with swelling- improved as above. NEUROLOGIC: CN 2-12 grossly intact, no sensory deficit, normal cognition,normal speech. No drooling noted. No gross focal deficit. PSYCHIATRIC: alert cooperative and oriented Results & Data Vital Signs (Past 12 Hours) Vital Signs Temp Pulse Resp BP Pulse Ox 09/10/19 15:27 37.0 C 86 17 116/65 98 09/10/19 07:24 36.8 C 92 H 16 119/72 96 Laboratory Results Short CBC 09/10/19 Range/Units 05:07 WBC 8.33 (4.8-10.8) K/uL Hgb 13.8 L (14.0-18.0) g/dL Hct 39.9 L (42-52) % Plt Count 133 (130-400) K/uL [facility] 09/10/19 05:07 Sodium 139 Potassium 3.4 L Chloride 106 Carbon Dioxide 27 BUN 6 L Creatinine 0.76 Glucose 98 Calcium 8.4 L Medications Administered Current Inpatient Medications Acetaminophen (Tylenol) 650 mg PO Q4H PRN PRN Reason: pain/fever Stop: 10/09/19 07:43 Last Admin: 09/09/19 17:23 Dose: 650 mg Documented by: Amoxicillin/Clavulanate Potassium (Augmentin 875mg) 1 tab PO BID [facility] Stop: 09/20/19 19:59 Enoxaparin Sodium (Lovenox) 40 mg SQ HS [facility] Stop: 10/09/19 20:59 Last Admin: 09/09/19 20:45 Dose: 40 mg Documented by: Hydromorphone HCl (Dilaudid) 0.5 mg IV Q3H PRN PRN Reason: Pain Stop: 09/23/19 07:43 Hydroxyzine HCl (Vistaril) 10 mg PO Q8H PRN PRN Reason: Itching Stop: 10/09/19 10:57 Sodium Chloride (Nss 1000ml) 1,000 mls @ 125 mls/hr IV .Q8H ANA MARIA Stop: 10/09/19 14:59 Last Admin: 09/10/19 13:08 Dose: 125 mls/hr Documented by: Ondansetron HCl (Zofran) 4 mg IV Q6H PRN PRN Reason: Nausea Stop: 10/09/19 07:43 Oxycodone HCl (Roxicodone Immediate Rel) 5 - 10 mg PO Q6H PRN PRN Reason: pain Stop: 09/23/19 07:43 Polyethylene Glycol (Miralax Powder Packet) 17 gm PO DAILY PRN PRN Reason: Constipation Stop: 10/09/19 07:43 Trimethoprim/Sulfamethoxazole (Septra Ds 800/160mg Tab) 1 tab PO BID [facility] Stop: 09/20/19 19:59 Venlafaxine HCl (Effexor Extended Release) 75 mg PO DAILY [facility] Stop: 10/09/19 08:59 Last Admin: 09/10/19 09:14 Dose: 75 mg Documented by: Vortioxetine (Trintellix) 1 ea PO DAILY [facility]; Protocol Stop: 10/09/19 08:59 Last Admin: 09/10/19 09:14 Dose: 1 ea Documented by: (1) Depression Depression Type: unspecified Qualified Code(s): F32.9 - Major depressive disorder, single episode, unspecified
[2019-09-10] MEDS ORDERED: VANCOMYCIN TROUGH ONE (17:30)
[2019-09-10] MEDS: ENOXAPARIN INJ 40 MG/0.4 ML SYR SQ SCH (20:51)
[2019-09-10] MEDS: SULFAMETHOXAZOLE/TRIMETHOPRIM DS 800/160MG TAB PO SCH (20:52)
[2019-09-10] MEDS: AMOXICILLIN/CLAVULANATE 875 MG TAB PO SCH (20:52)
[2019-09-11 05:15] LABS: Hemoglobin 14.2 g/dL (14.0-18.0); Mean Corpuscular Hemoglobin 29.6 pg (25-34); Mean Corpuscular Hgb Conc 34.6 g/dL (32-36); Mean Corpuscular Volume 85.4 fL (80-100); Mean Platelet Volume 9.6 fL (7.4-10.4); Platelet Count 131 K/uL (130-400); RDW Coefficient of Variation 12.5 % (11.5-14.5); RDW Standard Deviation 38.2 fL (36.4-46.3); White Blood Count 8.08 K/uL (4.8-10.8)
[2019-09-11 05:51] LABS: BUN Creatinine Ratio 9.7 (10-20); Blood Urea Nitrogen 7 mg/dl (7-18); Calcium 9.1 mg/dl (8.5-10.1); Carbon Dioxide 28 mmol/L (21-32); Chloride 107 mmol/L (98-107); Creatinine Clr Calc Pharmacy 229.2 ml/min; Est GFR (African American) > 150.0; Est GFR (Non-African American) 131.9; Glucose 87 mg/dl (70-99); Potassium 3.7 mmol/L (3.5-5.1); Sodium 140 mmol/L (136-145)
[2019-09-11] MEDS: VENLAFAXINE HCL XR 75 MG CAPXR PO SCH (09:06)
[2019-09-11] MEDS: SULFAMETHOXAZOLE/TRIMETHOPRIM DS 800/160MG TAB PO SCH (09:06)
[2019-09-11] MEDS: VORTIOXETINE HYDROBROMIDE 5 MG PO SCH (09:06)
[2019-09-11] MEDS: AMOXICILLIN/CLAVULANATE 875 MG TAB PO SCH (10:46)
--- NOTE | 2019-09-11 12:24 | Discharge Summary ---
Date of Service September 11, 2019 Admission HPI Per Admitting Provider HISTORY OF PRESENT ILLNESS: This is a 19-year-old male with past medical history significant for anxiety, depression, comes with a dental infection, left facial cellulitis. The patient developed left-sided toothache and infection last . He went to a [facility], was given clindamycin but it was not getting better, so he came to the [facility] ER yesterday with worsening pain and he was given a dose of Rocephin and discharged on clindamycin with increased dose . and also pain medication oxycodone. The patient again comes back today because he noted his left face was swollen and had significant pain. Denies any fever, chills at home, but in the ER he had low grade fever. Because of his ongoing symptoms, we have called for admission. The patient is given Unasyn and Flagyl in the ER. Currently, after pain medication the pain is improved but on opening the mouth and on movement the pain came back. Has some headaches and while he is ambulating he feels some dizziness. No blurred vision, no sore throat. No cough, no nausea, no vomiting, no chest pain or shortness of breath. No abdominal pain. Normal bowel and bladder movements. No hematuria, no burning micturition. No melena or hematochezia. No swelling in the legs, no rash. Admission Exam Per Admitting Provider PHYSICAL EXAMINATION: GENERAL: The patient is obese, not in acute distress. VITAL SIGNS: Temperature 37.6, pulse 107, respiratory rate 20, blood pressure 154/97, oxygen 100% room air. HEENT: Has left-sided facial swelling with mild erythematic changes and mild left periorbital edema. Eyes pupils equal and reactive to light. Oral mucosa moist and some mild skin changes in gums seen in the left upper last two teeth. NECK: No JVD, no neck masses. CARDIOVASCULAR: S1, S2 heard, regular rate and rhythm, no murmur, no gallop. RESPIRATORY SYSTEM: Normal AP diameter. No accessory muscle use. No wheezing, no crackles. ABDOMEN: Soft, bowel sounds present, nontender. No distention. CENTRAL NERVOUS SYSTEM: Cranial nerves II-XII grossly nonfocal. EXTREMITIES: No edema, no erythema. Principal Diagnosis facial cellulitis with dental infection Discharge Exam CONSTITUTIONAL: obese, vitals as above, generally well appearing. Tolerating PO, mentating clearly, afebrile. Ambulatory EYES: normal conjunctivae, no scleral icterus ENT: external ear and nose normal, oropharynx clear, Left facial swelling and erythema that has almost resolved with complete resolution of erythema, poor dentition, no evidence of pus around dentition. Normal tongue. NECK: trachea midline, no lymphadenopathy RESPIRATORY: clear to auscultation bilaterally, no crackles, rales or wheezes, normal respiratory effort CARDIOVASCULAR: regular rate and regular rhythm, S1 and 2 heard without murmurs, gallops or rubs, no JVD, no peripheral edema GASTROINTESTINAL: normal bowel sounds, soft, nontender, nondistended MUSCULOSKELETAL: strength 5/5 throughout, head is normocephalic and atraumatic SKIN: warm and dry NEUROLOGIC: CN 2-12 grossly intact, no sensory deficit, normal cognition, normal speech. No drooling noted. No gross focal deficit. PSYCHIATRIC: alert cooperative and oriented Discharge Data Allergies Allergy/AdvReac Type Severity Reaction Status Date / Time No Known Allergies Allergy Unverified 09/08/19 03:04 Consultations 09/09/19 05:33 ED Decision to Admit Stat Hospital Course (1) Facial cellulitis: Presented with facial cellulitis and dental pain that was not responding to clindamycin. He was admitted to the hospitalist team and continued on Unasyn and Vancomycin. Fever resolved within 24 hours of admission. Blood cultures were negative. Face CT from the day prior in the ER revealed paranasal sinus disease with dental caries and no evidence of fluctuance or abscess. Therapy was de-escalated to Bactrim and Augmentin and he remained afebrile and clinically stable for 24 hours prior to discharge. Close dental follow-up was recommended. (2) Sepsis: Sepsis developed a few hours into him being on the floor. He was resuscitated and improved within 24 hours. (3) Depression: Stable, Cont Trintellix and Effexor per home regimen. Total Time Total Time Spent Total Time Spent (In Minutes): 60 Total Time Includes: Examination of the Patient, Discharge Planning, Medication Reconciliation, Communication With Other Providers and Other (arrange follow-up) Discharge Plan Discharge Items Patient Disposition: Home - Self-Care Reason For Visit: DENTAL INFECTION Discharge Diagnosis: facial cellulitis with dental infection Condition on Discharge: Good Health Concerns: Close follow-up with dentistry. Start regular dental cleanings every 6 months. Activity: Resume your previous activity Non-emergency contact: Primary Care Provider Call non-emergency contact if: you have any medication questions, your symptoms worsen, your pain is not controlled, your pain is worsening, your pain is unusual for you, your pain is concerning for you and you have a fever Follow-up/Referrals: Tip Cosby, BRANDON [Primary Care Provider] - Diet: Regular Addtl Attending Provider Instructions: Please take all medications as instructed on discharge list below. Please follow-up with your primary are provider within one week of discharge. You are scheduled as follows: Please establish care with a general dentist within 1-2 weeks of discharge. It was a pleasure taking care of you! Please call if you have any questions or problems. You can reach a [facility] hospitalist on duty at [facility] 24 hours a day by calling [phone]. Take care of yourself. Sheba Michelle, DO [facility] Pending Studies at Discharge: Yes Studies:: initial blood cultures negative with final cultures pending at time of discharge. Stand-Alone Forms: My [facility], Work/School Release (Inpt), Smoking Cessation Medications and DC Order Prescriptions: New amoxicillin-pot clavulanate 875-125 mg Tablet 1 tab PO BID Qty: 14 RF: 0 sulfamethoxazole-trimethoprim 800-160 mg Tablet 1 tab PO BID Qty: 14 RF: 0 Continued Trintellix 5 mg 5 mg PO DAILY RF: 0 venlafaxine 75 mg capsule,extended release 24hr 75 mg PO DAILY RF: 0 Discontinued oxycodone 5 mg tablet 5 - 10 mg PO Q6H PRN (Reason: pain) Qty: 12 RF: 0 clindamycin HCl 300 mg capsule 300 mg PO Q6H 10 Days Qty: 10 RF: 0 Discharge Orders: Discharge Order (Routine); Ordered 09/11/19 Ordered By: Sheba Michelle Admission Data Admit Date/Time: 09/09/19 06:15 Attending Provider: Sheba Michelle Admit Provider: Sheba Michelle Primary Care Provider: Tip Cosby Other Providers: Palepu,Pascual P. Other Interventions: Discharge Summary Assessment (RN) Last Done: 09/11/19 12:40 DC Date/Time DO NOT enter until pt leaves facility: 09/11/19 13:56
== END 2019-09-11 13:56 | disposition home or self-care (01) | DRG 602 ==
LOC: ED 03:34 → 3N 06:15 → SUATTDRO 06:15 → 3N 07:13